=== PATIENT | male | born 1945 | race Caucasian/White ===

== ENCOUNTER 2019-12-04 16:49 | Emergency (ER) | payer MEDICARE, MEDICAID ==
[2019-12-04] MEDS ORDERED: Nitroglycerin 0.4 MG Tab.SL SL ONE (17:03)
[2019-12-04] MEDS ORDERED: HYDROmorphone 0.5 MG/0.5 ML Syringe IVPUSH ONE (17:03)
[2019-12-04] MEDS ORDERED: Sodium Chloride 0.9% 10 ML Syringe FLUSH PRN (17:04)
[2019-12-04] MEDS ORDERED: LORazepam 2 MG/ML SDV IVPUSH ONE ×2 (17:05→17:47)
--- NOTE | 2019-12-04 17:09 | EDM.PDOC ---
ED HPI GENERAL MEDICAL PROBLEM - General Chief Complaint: Chest Pain Stated Complaint: CHEST PAINS Time Seen by Provider: 12/04/19 16:57 Source of Information: Reports: Patient, RN Notes Reviewed - History of Present Illness INITIAL COMMENTS - FREE TEXT/NARRATIVE: 74 yr old male with onset of anterior chest pain about 30 minutes ago. Anterior chest heaviness and tightness radiating to L shoulder and L arm as well as base of neck. He arrives with continued severe pain, diaphoretic. No nausea or vomiting. He does not smoke. No known hx of CAD, diabetes or Htn but does not sound like he has seen a provider for a long time. Family hx of Cardiac problems. Chest Pain Score (Numeric/FACES): 8 Posterior Neck Pain Score (Numeric/FACES): 8 - Related Data Allergies Allergy/AdvReac Type Severity Reaction Status Date / Time No Known Allergies Allergy Verified 03/12/14 12:35 Home Meds: Home Meds . [No Known Home Meds] 03/12/14 [History] ED ROS GENERAL - Review of Systems Review Of Systems: See Below Constitutional: Reports: Diaphoresis. Denies: Fever, Chills HEENT: Denies: Sinus Problem, Throat Pain Respiratory: Reports: Shortness of Breath. Denies: Pleuritic Chest Pain, Cough Cardiovascular: Reports: Chest Pain GI/Abdominal: Denies: Abdominal Pain, Nausea, Vomiting Musculoskeletal: Reports: Neck Pain, Shoulder Pain, Arm Pain Skin: Reports: Diaphoresis Neurological: Reports: Dizziness ED EXAM, GENERAL - Physical Exam Exam: See Below General Appearance: Alert, Severe Distress Eye Exam: Bilateral Eye: PERRL Head: Atraumatic. No: Facial Swelling Neck: Supple, Other (No JVD) Respiratory/Chest: No Respiratory Distress, Lungs Clear. No: Rhonchi, Wheezing Cardiovascular: Regular Rate, Rhythm GI/Abdominal: Soft, Non-Tender. No: Guarding Back Exam: No: CVA Tenderness (L), CVA Tenderness (R) Extremities: No: Pedal Edema, Leg Pain, Increased Warmth, Redness Neurological: Alert, Oriented, No Motor/Sensory Deficits Skin Exam: No Rash, Pallor EKG INTERPRETATION EKG Date: 12/04/19 Rhythm: Other (NSR with frequent PVC's) [place]: Normal P-Wave: Present QRS: LBBB Course - Vital Signs Last Recorded V/S: Last Vital Signs Temp 96.9 F 12/04/19 18:30 Pulse 84 12/04/19 18:30 Resp 22 H 12/04/19 18:30 BP 158/98 H 12/04/19 18:30 Pulse Ox 92 L 12/04/19 18:30 - Orders/Labs/Meds Orders: Active Orders 24 hr Category Date Time Status EKG 12 Lead [EKG Documentation Completion] [RC] STAT Care 12/04/19 17:04 Active Oxygen Therapy, ED [RC] ASDIRECTED Care 12/04/19 19:24 Active Peripheral IV Care [RC] . DIRECTED Care 12/04/19 17:05 Active CORONAVIRUS COVID-19 RAPID [MOLEC] Stat Lab 12/04/19 18:13 Ordered Aspirin Med 12/04/19 17:15 Active 324 mg PO DAILY Heparin Sodium/D5W [Heparin 25,000 Units in D5W 500 ML] Med 12/04/19 17:30 Active 25,000 units in 500 ml IV TITRATE Nitroglycerin/D5W [Nitroglycerin 25 MG/D5W 250 ML] Med 12/04/19 17:30 Active 25 mg in 250 ml IV TITRATE Sodium Chloride 0.9% [Normal Saline] 1,000 ml Med 12/04/19 17:15 Active IV ASDIRECTED Sodium Chloride 0.9% [Saline Flush] Med 12/04/19 17:04 Active 10 ml FLUSH ASDIRECTED PRN Peripheral IV Insertion Adult [OM.PC] Stat Oth 12/04/19 17:05 Ordered Medication Orders Aspirin (Aspirin) 324 mg PO DAILY LOUIE Last Admin: 12/04/19 17:13 Dose: 324 mg Documented by: BENIGNO Sodium Chloride (Normal Saline) 1,000 mls @ 150 mls/hr IV ASDIRECTED LOUIE Last Admin: 12/04/19 17:22 Dose: 150 mls/hr Documented by: BENIGNO Nitroglycerin/Dextrose (Nitroglycerin 25 Mg/D5w 250 Ml) 25 mg in 250 mls @ 3 mls/hr IV TITRATE LOUIE; Protocol Last Titration: 12/04/19 18:05 Dose: 25 mcg/min, 15 mls/hr Documented by: Titration: 12/04/19 17:59 Dose: 20 mcg/min, 12 mls/hr Documented by: Titration: 12/04/19 17:50 Dose: 15 mcg/min, 9 mls/hr Documented by: Admin: 12/04/19 17:44 Dose: 10 mcg/min, 6 mls/hr Documented by: BENIGNO Heparin Sodium/Dextrose (Heparin 25,000 Units In D5w 500 Ml) 25,000 units in 500 mls @ 22.861 mls/hr IV TITRATE LOUIE; Protocol Last Admin: 12/04/19 17:45 Dose: 12 units/kg/hr, 22.861 mls/hr Documented by: BENIGNO Cosigned by: CAYETANO Sodium Chloride (Saline Flush) 10 ml FLUSH ASDIRECTED PRN PRN Reason: Keep Vein Open Last Admin: 12/04/19 17:18 Dose: 10 ml Documented by: BENIGNO Labs: Laboratory Tests 12/04/19 12/04/19 12/04/19 Range/Units 17:00 17:00 17:00 WBC 7.97 (4.23-9.07) K/mm3 RBC 5.29 (4.63-6.08) M/mm3 Hgb 16.4 (13.7-17.5) gm/dl Hct 47.8 (40.1-51.0) % MCV 90.4 D (79.0-92.2) fl MCH 31.0 (25.7-32.2) pg MCHC 34.3 (32.2-35.5) g/dl RDW Std Deviation 43.2 (35.1-43.9) fL Plt Count 261 (163-337) K/mm3 MPV 9.9 (9.4-12.3) fl Neut % (Auto) 61.2 (34.0-67.9) % Lymph % (Auto) 26.3 (21.8-53.1) % [place] % (Auto) 8.4 (5.3-12.2) % Eos % (Auto) 3.6 (0.8-7.0) Baso % (Auto) 0.4 (0.1-1.2) % Neut # (Auto) 4.87 (1.78-5.38) K/mm3 Lymph # (Auto) 2.10 (1.32-3.57) K/mm3 [place] # (Auto) 0.67 (0.30-0.82) K/mm3 Eos # (Auto) 0.29 (0.04-0.54) K/mm3 Baso # (Auto) 0.03 (0.01-0.08) K/mm3 PT 10.3 (9.7-12.0) SECONDS INR 0.96 APTT 25 (22-31) SECONDS Sodium 140 (136-145) mEq/L Potassium 4.0 (3.5-5.1) mEq/L Chloride 106 (98-107) mEq/L Carbon Dioxide 22 (21-32) mEq/L Anion Gap 16.0 H (5-15) BUN 17 (7-18) mg/dL Creatinine 1.2 (0.7-1.3) mg/dL Est Cr Clr Drug Dosing 56.61 mL/min Estimated GFR (MDRD) 59 (>60) mL/min BUN/Creatinine Ratio 14.2 (14-18) Glucose 121 H (83-115) mg/dL Calcium 8.8 (8.5-10.1) mg/dL Total Bilirubin 0.3 (0.2-1.0) mg/dL AST 15 (15-37) U/L ALT 36 (16-63) U/L Alkaline Phosphatase 90 (46-116) U/L Troponin I 0.034 (0.00-0.056) ng/mL Total Protein 7.8 (6.4-8.2) g/dl Albumin 4.0 (3.4-5.0) g/dl Globulin 3.8 gm/dL Albumin/Globulin Ratio 1.1 (1-2) Meds: Medications Generic Name Dose Route Start Last Admin Trade Name Freq PRN Reason Stop Dose Admin Aspirin 324 mg 12/04/19 17:15 12/04/19 17:13 Aspirin PO 324 mg DAILY LOUIE Administration Sodium Chloride 1,000 mls @ 150 mls/hr 12/04/19 17:15 12/04/19 17:22 Normal Saline IV 150 mls/hr ASDIRECTED LOUIE Administration Nitroglycerin/Dextrose 25 mg in 250 mls @ 3 mls/hr 12/04/19 17:30 12/04/19 18:05 Nitroglycerin 25 Mg/D5w 250 Ml IV 25 mcg/min TITRATE LOUIE 15 mls/hr Titration Protocol 5 MCG/MIN Heparin Sodium/Dextrose 25,000 units in 500 mls @ 22.861 mls/hr 12/04/19 17:30 12/04/19 17:45 Heparin 25,000 Units In D5w 500 Ml IV 12 units/kg/hr TITRATE LOUIE 22.861 mls/hr Administration Protocol 12 UNITS/KG/HR Sodium Chloride 10 ml 12/04/19 17:04 12/04/19 17:18 Saline Flush FLUSH 10 ml ASDIRECTED PRN Administration Keep Vein Open Discontinued Medications Generic Name Dose Route Start Last Admin Trade Name Frejosh PRN Reason Stop Dose Admin Heparin Sodium (Porcine) 4,000 units 12/04/19 17:29 12/04/19 17:42 Heparin Sodium IVPUSH 12/04/19 17:30 4,000 units .BOLUS ONE Administration Hydromorphone HCl 0.5 mg 12/04/19 17:03 12/04/19 17:16 Dilaudid IVPUSH 12/04/19 17:04 0.5 mg ONETIME ONE Administration Lorazepam 0.5 mg 12/04/19 17:05 12/04/19 17:09 Ativan IVPUSH 12/04/19 17:06 0.5 mg ONETIME ONE Administration Lorazepam 0.5 mg 12/04/19 17:47 12/04/19 17:47 Ativan IVPUSH 12/04/19 17:48 0.5 mg ONETIME ONE Administration Nitroglycerin 0.4 mg 12/04/19 17:03 12/04/19 17:08 Nitrostat SL 12/04/19 17:04 0.4 mg ONETIME ONE Administration Tenecteplase Confirm 12/04/19 17:18 12/04/19 18:22 Tnkase Administered 12/04/19 17:19 Not Given Dose 50 mg .ROUTE .[facility] - Re-Assessments/Exams Free Text/Narrative Re-Assessment/Exam: 12/04/19 18:07 17:26. Have discussed sx, EKG with Dr Mendoza, [employer] documentation coordinator for [facility]. Have sent her the EKG for her review. With his high BP on arrival, LBB on EKG we do not know that this is a STEMI, she strongly believes not safe to give thrombolytics. She does want us to start heparin- bolus, drip has been ordered. He was given aspirin 324 chew. He has had 1 ntg SL, nitro drip also ordered. We have called [facility] for helicopter to come out for transfer. they are doing a weather check at this time. 12/04/19 17:45. Still groaning, threshing around, will give 0.5 mg further ativan. BP improved to about 160/100. Sinus rythm in the 80's, still having somewhat frequent PVC's. 18:[address] Mendoza, [employer], [facility] who does accept pt for transfer. Air crew left with him just a short time ago, pain down to about a 3-4. He will go to the ED, [facility]. Tropo .034. CXR nl, other labs relatively nl. 12/04/19 19:29. looking for results of covid screen. Order entered well before transfer, unfortunately it did not get done, he did not get swabbed while here in the ED. 12/04/19 19:36 Departure - Departure Time of Disposition: 15:45 Disposition: DC/Tfer to [facility] 02 Reason for Transfer *Q: Other Condition: Serious Clinical Impression: Acute coronary syndrome Referrals: PCP,None [Ordering Only Provider] - Forms: ED Department Discharge Sepsis Event Note (ED) - Evaluation Sepsis Screening Result: No Definite Risk - Focused Exam Vital Signs: Vital Signs Temp Pulse Resp BP BP Pulse Ox 12/04/19 18:30 96.9 F 84 22 H 158/98 H 92 L 12/04/19 17:08 168/103 H 12/04/19 17:00 95.5 F L 87 18 192/128 H 96 - My Orders Last 24 Hours: My Active Orders 12/04/19 17:04 EKG 12 Lead [EKG Documentation Completion] [RC] STAT Sodium Chloride 0.9% [Saline Flush] 10 ml FLUSH ASDIRECTED PRN 12/04/19 17:05 Peripheral IV Care [RC] . DIRECTED Peripheral IV Insertion Adult [OM.PC] Stat 12/04/19 17:15 Aspirin 324 mg PO DAILY Sodium Chloride 0.9% [Normal Saline] 1,000 ml IV ASDIRECTED 12/04/19 17:30 Heparin Sodium/D5W [Heparin 25,000 Units in D5W 500 ML] 25,000 units in 500 ml IV TITRATE Nitroglycerin/D5W [Nitroglycerin 25 MG/D5W 250 ML] 25 mg in 250 ml IV TITRATE 12/04/19 18:13 CORONAVIRUS COVID-19 RAPID [MOLEC] Stat 12/04/19 19:24 Oxygen Therapy, ED [RC] ASDIRECTED - Assessment/Plan Last 24 Hours: My Active Orders 12/04/19 17:04 EKG 12 Lead [EKG Documentation Completion] [RC] STAT Sodium Chloride 0.9% [Saline Flush] 10 ml FLUSH ASDIRECTED PRN 12/04/19 17:05 Peripheral IV Care [RC] . DIRECTED Peripheral IV Insertion Adult [OM.PC] Stat 12/04/19 17:15 Aspirin 324 mg PO DAILY Sodium Chloride 0.9% [Normal Saline] 1,000 ml IV ASDIRECTED 12/04/19 17:30 Heparin Sodium/D5W [Heparin 25,000 Units in D5W 500 ML] 25,000 units in 500 ml IV TITRATE Nitroglycerin/D5W [Nitroglycerin 25 MG/D5W 250 ML] 25 mg in 250 ml IV TITRATE 12/04/19 18:13 CORONAVIRUS COVID-19 RAPID [MOLEC] Stat 12/04/19 19:24 Oxygen Therapy, ED [RC] ASDIRECTED
[2019-12-04] MEDS ORDERED: Aspirin 81 MG Tab.Chew PO SCH (17:15)
[2019-12-04] MEDS ORDERED: Sodium Chloride 0.9% 1,000 ML IV SCH (17:15)
[2019-12-04] MEDS ORDERED: Tenecteplase 50 MG Kit ONE (17:18)
[2019-12-04] MEDS ORDERED: Heparin Sodium 5,000 Units/ML Vial IVPUSH ONE (17:29)
[2019-12-04] MEDS ORDERED: Heparin Sodium/D5W 25,000 UNITS/500 ML BAG IV SCH (17:30)
[2019-12-04] MEDS ORDERED: Nitroglycerin/D5W 25 MG/250 ML BOTTLE IV SCH (17:30)
--- NOTE | 2019-12-04 17:41 | CR ---
Chest: Portable view of the chest was obtained. Comparison: Prior chest x-ray of 03/12/14. Heart size and mediastinum are within normal limits for portable technique. Lungs are clear with no acute parenchymal change. Bony structures are grossly intact. Impression: 1. Nothing acute is seen on portable chest x-ray. Diagnostic code #1 This report was dictated in MDT
== END 2019-12-04 18:30 ==
LOC: JD.ED 16:49
DX: I24.9 Acute ischemic heart disease, unspecified (principal)
CPT/HCPCS: 36415; 71045; 80053; 84484; 85025; 85610; 85730; 93005; 96365; 96368; 96375; 96376; 99285; A9270; J1170; J1644; J2060; J3490; J7030; 93010; 99284

== ENCOUNTER 2020-03-25 14:41 | Emergency (ER) | payer MEDICARE, MEDICAID ==
[2020-03-25] MEDS ORDERED: EPINEPHrine 1:10,000 1 MG/10 ML Syringe IM PRN (15:28)
[2020-03-25] MEDS ORDERED: diphenhydrAMINE 50 MG/ML SDV IVPUSH PRN (15:28)
[2020-03-25] MEDS ORDERED: methylPREDNISolone Sodium Succinate 125 MG/2 ML SDV IVPUSH PRN (15:28)
[2020-03-25] MEDS ORDERED: Famotidine 20 MG/2 ML SDV IVPUSH PRN (15:28)
[2020-03-25] MEDS ORDERED: Sodium Chloride 0.9% 10 ML Syringe FLUSH PRN (15:28)
[2020-03-25] MEDS ORDERED: Sodium Chloride 0.9% 10 ML Syringe FLUSH SCH (15:30)
--- NOTE | 2020-03-25 15:37 | EDM.PDOC ---
ED HPI GENERAL MEDICAL PROBLEM - General Chief Complaint: Respiratory Problem Stated Complaint: COVID +/COUGH Time Seen by Provider: 03/25/20 14:57 Source of Information: Reports: Patient, RN Notes Reviewed History Limitations: Reports: No Limitations - History of Present Illness INITIAL COMMENTS - FREE TEXT/NARRATIVE: Patient is a 74-year-old male who presents to the ED for evaluation of his COVID-19. Patient notes he began to become symptomatic on Saturday, March 19, 2020, and he tested positive Saturday for COVID-19.he has had a heart attack 3 months ago, and he is on certain medications for his cardiac disease that makes him dizzy, have a cough and feel fatigued. He notes that this fall has worsened since he has been symptomatic with COVID-19. He is not getting any junk up with his cough. O2 sats are 97% on room air. The patient notes that his lungs hurt when he takes a deep breath, he notes that he has had this feeling 1 other time, when he had a pneumonia. His primary care provider is Boni Fernandez. He has not had any fevers or chills, he states he did have a few episodes of nausea and vomiting, but has been able to keep most of his food and fluids down. Treatments ALTERATIONS TAILOR: Reports: Other (see below) Other Treatments ALTERATIONS TAILOR: tylenol Neck Pain Score (Numeric/FACES): 7 Shoulder Pain Score (Numeric/FACES): 5 - Related Data Allergies Allergy/AdvReac Type Severity Reaction Status Date / Time No Known Allergies Allergy Verified 03/12/14 12:35 Home Meds: Home Meds Codeine/Promethazine [Phenergan with Codeine] 5 ml PO Q4HR PRN #120 ml 03/25/20 [Rx] Past Medical History Cardiovascular History: Reports: NH (11/2019), Stents Gastrointestinal History: Reports: Other (See Below) Other Gastrointestinal History: chron's with colostomy Neurological History: Reports: CVA Other Neuro History: 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.- PT SAYS HE STILL IS WEAK IN THE RIGHT SIDE AND ALSO HAD MUMBLED SPEECH - Infectious Disease History Infectious Disease History: Reports: Measles Social & Family History - Tobacco Use Tobacco Use Status *Q: Former Tobacco User Used Tobacco, but Quit: Yes Month/Year Tobacco Last Used: 4 yr - Caffeine Use Caffeine Use: Reports: Coffee Other Caffeine Use: decaf - Recreational Drug Use Recreational Drug Use: No ED ROS GENERAL - Review of Systems Review Of Systems: Comprehensive ROS is negative, except as noted in HPI. ED EXAM, GENERAL - Physical Exam Exam: See Below Exam Limited By: No Limitations General Appearance: Alert, WD/WN, No Apparent Distress Respiratory/Chest: No Respiratory Distress, Lungs Clear, Normal Breath Sounds, No Accessory Muscle Use, Chest Non-Tender Cardiovascular: Normal Peripheral Pulses, Regular Rate, Rhythm, No Edema, No Murmur GI/Abdominal: Normal Bowel Sounds, Soft, Non-Tender, No Distention, No Mass Extremities: Normal Inspection, Normal Capillary Refill Neurological: Alert, Oriented, Normal Cognition, No Motor/Sensory Deficits Psychiatric: Normal Affect, Normal Mood Skin Exam: Warm, Dry, Intact, Normal Color, No Rash #1 Interpretation EKG Date: 03/25/20 Time: 15:02 Rhythm: NSR Rate (Beats/Min): 66 [place]: Normal P-Wave: Present QRS: LBBB ST-T: Normal QT: Normal EKG Interpretation Comments: No obvious ischemia or acute ST changes noted, reviewed by myself and Dr. Khan. Course - Vital Signs Last Recorded V/S: Last Vital Signs Temp 97.2 F 03/25/20 15:06 Pulse 70 03/25/20 15:06 Resp 20 03/25/20 15:06 BP 107/79 03/25/20 15:06 Pulse Ox 98 03/25/20 15:06 - Orders/Labs/Meds Orders: Active Orders 24 hr Category Date Time Status EKG Documentation Completion [RC] STAT Care 03/25/20 15:27 Ordered Peripheral IV Care [RC] . DIRECTED Care 03/25/20 15:28 Ordered Vital Signs [RC] Q15M Care 03/25/20 15:28 Ordered EPINEPHrine [EPINEPHrine 1:10,000] Med 03/25/20 15:28 Active 0.3 mg IM ONETIME PRN Famotidine [Pepcid] Med 03/25/20 15:28 Active 20 mg IVPUSH ONETIME PRN Sodium Chloride 0.9% [Saline Flush] Med 03/25/20 15:28 Active 10 ml FLUSH ASDIRECTED PRN Sodium Chloride 0.9% [Saline Flush] Med 03/25/20 15:30 Active 30 ml FLUSH ASDIRECTED diphenhydrAMINE [Benadryl] Med 03/25/20 15:28 Active 50 mg IVPUSH ONETIME PRN methylPREDNISolone Sod Succ [Solu-MEDROL] Med 03/25/20 15:28 Active 125 mg IVPUSH ONETIME PRN Peripheral IV Insertion Adult [OM.PC] Routine Oth 03/25/20 15:28 Ordered Medication Orders Diphenhydramine HCl (Benadryl) 50 mg IVPUSH ONETIME PRN PRN Reason: hypersensitivity reaction Epinephrine HCl (Epinephrine 1:10,000) 0.3 mg IM ONETIME PRN PRN Reason: hypersensitivity reaction Famotidine (Pepcid) 20 mg IVPUSH ONETIME PRN PRN Reason: hypersensitivity reaction Methylprednisolone Sodium Succinate (Solu-Medrol) 125 mg IVPUSH ONETIME PRN PRN Reason: hypersensitivity reaction Sodium Chloride (Saline Flush) 10 ml FLUSH ASDIRECTED PRN PRN Reason: Keep Vein Open Last Admin: 03/25/20 16:04 Dose: 10 ml Documented by: NAIN Sodium Chloride (Saline Flush) 30 ml FLUSH ASDIRECTED [facility] Labs: Laboratory Tests 03/25/20 03/25/20 03/25/20 Range/Units 15:05 15:05 15:05 WBC 4.23 (4.23-9.07) K/mm3 RBC 4.13 L (4.63-6.08) M/mm3 Hgb 12.9 L D (13.7-17.5) gm/dl Hct 38.9 L (40.1-51.0) % MCV 94.2 H D (79.0-92.2) fl MCH 31.2 (25.7-32.2) pg MCHC 33.2 (32.2-35.5) g/dl RDW Std Deviation 47.4 H (35.1-43.9) fL Plt Count 179 D (163-337) K/mm3 MPV 10.5 (9.4-12.3) fl Neutrophils % (Manual) 71 H (40-60) % Band Neutrophils % 1 (0-10) % Lymphocytes % (Manual) 20 (20-40) % Atypical Lymphs % 0 % Monocytes % (Manual) 5 (2-10) % Eosinophils % (Manual) 3 (0.8-7.0) % Basophils % (Manual) 0 L (0.2-1.2) Platelet Estimate Adequate RBC Morph Comment Normal PT 10.1 (9.7-12.0) SECONDS INR 0.94 APTT 27.3 (21.7-31.4) SECONDS D-Dimer, Quantitative 0.63 H (0.19-0.50) mg/L Sodium (136-145) mEq/L Potassium (3.5-5.1) mEq/L Chloride (98-107) mEq/L Carbon Dioxide (21-32) mEq/L Anion Gap (5-15) BUN (7-18) mg/dL Creatinine (0.7-1.3) mg/dL Est Cr Clr Drug Dosing mL/min Estimated GFR (MDRD) (>60) mL/min BUN/Creatinine Ratio (14-18) Glucose (83-115) mg/dL Lactic Acid (0.4-2.0) mmol/L Calcium (8.5-10.1) mg/dL Magnesium (1.8-2.4) mg/dl Ferritin (26-388) ng/ml Total Bilirubin (0.2-1.0) mg/dL AST (15-37) U/L ALT (16-63) U/L Alkaline Phosphatase (46-116) U/L Troponin I (0.00-0.056) ng/mL C-Reactive Protein 1.6 H* (<1.0) mg/dL NT-Pro-B Natriuret Pep (0-125) pg/mL Total Protein (6.4-8.2) g/dl Albumin (3.4-5.0) g/dl Globulin gm/dL Albumin/Globulin Ratio (1-2) 03/25/20 03/25/20 03/25/20 Range/Units 15:05 15:05 15:05 WBC (4.23-9.07) K/mm3 RBC (4.63-6.08) M/mm3 Hgb (13.7-17.5) gm/dl Hct (40.1-51.0) % MCV (79.0-92.2) fl MCH (25.7-32.2) pg MCHC (32.2-35.5) g/dl RDW Std Deviation (35.1-43.9) fL Plt Count (163-337) K/mm3 MPV (9.4-12.3) fl Neutrophils % (Manual) (40-60) % Band Neutrophils % (0-10) % Lymphocytes % (Manual) (20-40) % Atypical Lymphs % % Monocytes % (Manual) (2-10) % Eosinophils % (Manual) (0.8-7.0) % Basophils % (Manual) (0.2-1.2) Platelet Estimate RBC Morph Comment PT (9.7-12.0) SECONDS INR APTT (21.7-31.4) SECONDS D-Dimer, Quantitative (0.19-0.50) mg/L Sodium 139 (136-145) mEq/L Potassium 3.9 (3.5-5.1) mEq/L Chloride 106 (98-107) mEq/L Carbon Dioxide 19 L (21-32) mEq/L Anion Gap 17.9 H (5-15) BUN 22 H (7-18) mg/dL Creatinine 1.1 (0.7-1.3) mg/dL Est Cr Clr Drug Dosing 61.76 mL/min Estimated GFR (MDRD) > 60 (>60) mL/min BUN/Creatinine Ratio 20.0 H (14-18) Glucose 93 (83-115) mg/dL Lactic Acid (0.4-2.0) mmol/L Calcium 8.5 (8.5-10.1) mg/dL Magnesium 1.9 (1.8-2.4) mg/dl Ferritin 172 (26-388) ng/ml Total Bilirubin 0.3 (0.2-1.0) mg/dL AST 37 (15-37) U/L ALT 47 (16-63) U/L Alkaline Phosphatase 89 (46-116) U/L Troponin I < 0.017 (0.00-0.056) ng/mL C-Reactive Protein (<1.0) mg/dL NT-Pro-B Natriuret Pep 165 H (0-125) pg/mL Total Protein 7.1 (6.4-8.2) g/dl Albumin 3.4 (3.4-5.0) g/dl Globulin 3.7 gm/dL Albumin/Globulin Ratio 0.9 L (1-2) 03/25/20 Range/Units 15:05 WBC (4.23-9.07) K/mm3 RBC (4.63-6.08) M/mm3 Hgb (13.7-17.5) gm/dl Hct (40.1-51.0) % MCV (79.0-92.2) fl MCH (25.7-32.2) pg MCHC (32.2-35.5) g/dl RDW Std Deviation (35.1-43.9) fL Plt Count (163-337) K/mm3 MPV (9.4-12.3) fl Neutrophils % (Manual) (40-60) % Band Neutrophils % (0-10) % Lymphocytes % (Manual) (20-40) % Atypical Lymphs % % Monocytes % (Manual) (2-10) % Eosinophils % (Manual) (0.8-7.0) % Basophils % (Manual) (0.2-1.2) Platelet Estimate RBC Morph Comment PT (9.7-12.0) SECONDS INR APTT (21.7-31.4) SECONDS D-Dimer, Quantitative (0.19-0.50) mg/L Sodium (136-145) mEq/L Potassium (3.5-5.1) mEq/L Chloride (98-107) mEq/L Carbon Dioxide (21-32) mEq/L Anion Gap (5-15) BUN (7-18) mg/dL Creatinine (0.7-1.3) mg/dL Est Cr Clr Drug Dosing mL/min Estimated GFR (MDRD) (>60) mL/min BUN/Creatinine Ratio (14-18) Glucose (83-115) mg/dL Lactic Acid 1.1 (0.4-2.0) mmol/L Calcium (8.5-10.1) mg/dL Magnesium (1.8-2.4) mg/dl Ferritin (26-388) ng/ml Total Bilirubin (0.2-1.0) mg/dL AST (15-37) U/L ALT (16-63) U/L Alkaline Phosphatase (46-116) U/L Troponin I (0.00-0.056) ng/mL C-Reactive Protein (<1.0) mg/dL NT-Pro-B Natriuret Pep (0-125) pg/mL Total Protein (6.4-8.2) g/dl Albumin (3.4-5.0) g/dl Globulin gm/dL Albumin/Globulin Ratio (1-2) Meds: Medications Generic Name Dose Route Start Last Admin Trade Name Freq PRN Reason Stop Dose Admin Diphenhydramine HCl 50 mg 03/25/20 15:28 Benadryl IVPUSH ONETIME PRN hypersensitivity reaction Epinephrine HCl 0.3 mg 03/25/20 15:28 Epinephrine 1:10,000 IM ONETIME PRN hypersensitivity reaction Famotidine 20 mg 03/25/20 15:28 Pepcid IVPUSH ONETIME PRN hypersensitivity reaction Methylprednisolone Sodium Succinate 125 mg 03/25/20 15:28 Solu-Medrol IVPUSH ONETIME PRN hypersensitivity reaction Sodium Chloride 10 ml 03/25/20 15:28 03/25/20 16:04 Saline Flush FLUSH 10 ml ASDIRECTED PRN Administration Keep Vein Open Sodium Chloride 30 ml 03/25/20 15:30 Saline Flush FLUSH ASDIRECTED LOUIE Discontinued Medications Generic Name Dose Route Start Last Admin Trade Name Freq PRN Reason Stop Dose Admin Bamlanivimab 700 mg/ Sodium 270 mls @ 270 mls/hr 03/25/20 16:00 03/25/20 16:03 Chloride IV 03/25/20 16:59 270 mls/hr ONETIME ONE Administration Protocol - Re-Assessments/Exams Free Text/Narrative Re-Assessment/Exam: 03/25/20 15:38 Patient presents to the ED for evaluation of his ongoing COVID-19 symptoms. Labs have been obtained at time of triage, EKG has been done and demonstrates sinus rhythm with a left bundle branch block, but no acute abnormalities were appreciated. He is a candidate for bamlanivimab treatment as he is over 65, and does have underlying cardiovascular disease and is within the 10-day symptom onset timeframe. This has been ordered as well. I spoke with the patient to provide information about bamlanivimab treatment. I offered ( him/her) the "Patient and caregiver EUA bamlanivimab fact sheet" to read and review. I stated that the drug has been approved by an emergency use authorization (EUA) process and has not been fully FDA reviewed or approved. The patient meets the EUA requirements. I discussed there are other potential treatment options that are currently not FDA approved to treat COVID-19. I did offer an opportunity to ask questions and all questions were answered. The patient voiced understanding and agreed to proceed with the treatment. 03/25/20 16:23 Chest x-ray has been performed and does not appear to have any acute findings. 03/25/20 17:32 Labs are all consistent with a COVID-19 infection. Patient tolerated the bamlanivimab treatment, we will need to keep him here in the ER until 18:10 before we can discharge him. I will give him a prescription for cough medication and discharge him home with other general conservative re commendations. Departure - Departure Time of Disposition: 17:33 Disposition: Home, Self-Care 01 Condition: Good Clinical Impression: COVID-19 - Discharge Information *PRESCRIPTION DRUG MONITORING PROGRAM REVIEWED*: Yes *COPY OF PRESCRIPTION DRUG MONITORING REPORT IN PATIENT [place]: No Prescriptions: Codeine/Promethazine [Phenergan with Codeine] 5 ml PO Q4HR PRN #120 ml PRN Reason: Cough Instructions: Prevent the Spread of COVID-19 if You Are Sick - CDC, COVID-19 Frequently Asked Questions Referrals: Boni Fernandez Jr, MD [Primary Care Provider] - Forms: ED Department Discharge Additional Instructions: You were seen in the ER today for ongoing and/or worsening respiratory symptoms. Your chest x-ray showed no signs of pneumonia at this time. Your oxygen levels were great at 97-98% on room air. Please try to increase your oral fluid intake, and eat multiple small meals throughout the day, to keep yourself healthy. You need to keep yourself nourished in order to fight off this disease. You can try a liquid diet like gatorade/powerade as well to get your electrolytes. You may take 500 mg Tylenol every hours 6 hours for pain/fever relief. Do not exceed 4000 mg Tylenol in a 24-hour time span. However, running a fever is your body's natural response to illness, and it allows the body to develop antibodies to disease, we are recommending trying to limit the use of Tylenol as much as possible to allow your body's natural immune response. Recommend you obtain a pulse oximeter and monitor your oxygen levels at home, you should place the monitor on your finger, and sit in a calm, quiet position for a few minutes and then record the number that is on the screen. If this consistently below 90% on room air without movement, this would be cause for concern to come back to the hospital for further management of your COVID-19 disease. You were given a prescription for cough medication, please use 5-10 mils by mouth every 4 hours as needed for further cough. Do not drive while using this medication. Please follow all direction set forth from the [facility] regarding your quarantine status for COVID-19. Sepsis Event Note (ED) - Evaluation Sepsis Screening Result: No Definite Risk - Focused Exam Vital Signs: Vital Signs Temp Pulse Resp BP Pulse Ox 03/25/20 15:06 97.2 F 70 20 107/79 98 - My Orders Last 24 Hours: My Active Orders 03/25/20 15:27 EKG Documentation Completion [RC] STAT 03/25/20 15:28 Peripheral IV Care [RC] . DIRECTED Vital Signs [RC] Q15M EPINEPHrine [EPINEPHrine 1:10,000] 0.3 mg IM ONETIME PRN Famotidine [Pepcid] 20 mg IVPUSH ONETIME PRN Sodium Chloride 0.9% [Saline Flush] 10 ml FLUSH ASDIRECTED PRN diphenhydrAMINE [Benadryl] 50 mg IVPUSH ONETIME PRN methylPREDNISolone Sod Succ [Solu-MEDROL] 125 mg IVPUSH ONETIME PRN Peripheral IV Insertion Adult [OM.PC] Routine 03/25/20 15:30 Sodium Chloride 0.9% [Saline Flush] 30 ml FLUSH ASDIRECTED - Assessment/Plan Last 24 Hours: My Active Orders 03/25/20 15:27 EKG Documentation Completion [RC] STAT 03/25/20 15:28 Peripheral IV Care [RC] . DIRECTED Vital Signs [RC] Q15M EPINEPHrine [EPINEPHrine 1:10,000] 0.3 mg IM ONETIME PRN Famotidine [Pepcid] 20 mg IVPUSH ONETIME PRN Sodium Chloride 0.9% [Saline Flush] 10 ml FLUSH ASDIRECTED PRN diphenhydrAMINE [Benadryl] 50 mg IVPUSH ONETIME PRN methylPREDNISolone Sod Succ [Solu-MEDROL] 125 mg IVPUSH ONETIME PRN Peripheral IV Insertion Adult [OM.PC] Routine 03/25/20 15:30 Sodium Chloride 0.9% [Saline Flush] 30 ml FLUSH ASDIRECTED
--- NOTE | 2020-03-25 16:20 | CR ---
Chest: Portable view of the chest was obtained. Comparison: Prior chest x-ray of 12/04/19. Findings: Heart and mediastinum. Tortuous thoracic aorta is seen. Lungs are clear. No mediastinal mass is appreciated. Lungs: Lungs are clear with no acute parenchymal change. No pleural thickening is seen. Osseous: No acute osseous finding is seen. Impression: 1. Nothing acute is seen on portable chest x-ray. Diagnostic code #1
== END 2020-03-25 19:00 | disposition home or self-care (01) ==
LOC: JD.ED 14:41
DX: U07.1 COVID-19 (principal); I25.2 Old myocardial infarction; Z86.73 Personal history of transient ischemic attack (TIA), and cerebral infarction without residual deficits; Z87.891 Personal history of nicotine dependence
CPT/HCPCS: 36415; 71045; 71045-26; 80053; 82728; 83605; 83735; 83880; 84484; 85007; 85027; 85379; 85610; 85730; 86140; 93005; 93010; 96365; 99283; 99284-25; J7050

== ENCOUNTER 2020-09-25 19:30 | Emergency (ER) | payer MEDICARE, MEDICAID ==
--- NOTE | 2020-09-25 20:06 | EDM.PDOC ---
ED HPI GENERAL MEDICAL PROBLEM - General Chief Complaint: Genitourinary Problem Stated Complaint: BLOOD IN URINE Time Seen by Provider: 09/25/20 19:40 Source of Information: Reports: Patient, Significant Other (Girlfriend) History Limitations: Reports: No Limitations - History of Present Illness INITIAL COMMENTS - FREE TEXT/NARRATIVE: Mr. Velarde is a pleasant 75-year-old gentleman who now presents the ED stating that he developed painless gross hematuria and mild generalized weakness last night. No associated dysuria, urinary frequency, or urgency. He denies feeling lightheaded when he stands up. No trauma to the abdomen or pelvis. No prior similar symptoms. The patient is on both Brilinta and aspirin 81 mg daily. Here in the ED, the patient's initial BP is found to be mildly elevated at 153/77, otherwise, he is hemodynamically stable, afebrile, saturating 98% on room air. He appears to be comfortable while lying semirecumbent on the gurney. Prior to last night, the patient denies having a recent fever, chills, sore throat, ear pain, nasal or sinus congestion, cough, dyspnea, chest pain, palpitations, nausea, vomiting, constipation, diarrhea, abdominal pain, urinary symptoms, recent weight gain or weight loss, recent bloody bowel movements or black bowel movements, recent joint aches, headaches, or rashes. The patient does not recall the name of his PCP. His Commissary Helper is Dr. Gail Mendoza. His Colorectal Surgeon is Dr. Devon Lemos. - Related Data Allergies Allergy/AdvReac Type Severity Reaction Status Date / Time No Known Allergies Allergy Verified 03/12/14 12:35 Home Meds: Home Meds Codeine/Promethazine [Phenergan with Codeine] 5 ml PO Q4HR PRN #120 ml 03/25/20 [Rx] Metoprolol Succinate [Toprol XL] 25 mg PO DAILY 09/25/20 [History] Rosuvastatin [Crestor] 10 mg PO DAILY 09/25/20 [History] Spironolactone [Aldactone] 25 mg PO DAILY 09/25/20 [History] Ticagrelor [Brilinta] 90 mg PO BID 09/25/20 [History] lisinopriL [Lisinopril] 10 mg PO DAILY 06/06/21 [History] Past Medical History Cardiovascular History: Reports: CAD, [place] (12/04/2019) Gastrointestinal History: Reports: Inflammatory Bowel Disease (Crohn disease, s/p total colectomy with ileostomy) Genitourinary History: Reports: BPH (suspected, untreated) Neurological History: Reports: 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) - Infectious Disease History Infectious Disease History: Reports: Measles, Novel Coronavirus (dx'd 03/23/2020) - Past Surgical History HEENT Surgical History: Reports: Oral Surgery (dental extractions) Cardiovascular Surgical History: Reports: Coronary Artery Stent (x 3, 12/04/2019) GI Surgical History: Reports: Colon (total colectomy with ileostomy) Social & Family History - Tobacco Use Tobacco Use Status *Q: Former Tobacco User Years of Tobacco use: 18 Packs/Tins Daily: 2 Month/Year Tobacco Last Used: Quit 1982 Tobacco Use Comment: Started smoking 1964 - Caffeine Use Caffeine Use: Reports: Coffee Other Caffeine Use: decaf - Alcohol Use Alcohol Use History: Yes Alcohol Use Frequency: Rarely - Recreational Drug Use Recreational Drug Use: No - Living Situation & Occupation Living situation: Reports: , with Significant Other (Girlfriend) Occupation: Retired ED ROS GENERAL - Review of Systems Review Of Systems: Comprehensive ROS is negative, except as noted in HPI. ED EXAM, RENAL/ - Physical Exam Exam: See Below Exam Limited By: No Limitations General Appearance: Alert, WD/WN, No Apparent Distress Eye Exam: Bilateral Eye: EOMI, Normal Inspection Ears: Normal External Exam, Hearing Grossly Normal Nose: Normal Inspection Throat/Mouth: Normal Inspection, Normal Lips, Normal Voice, No Airway Compromise Head: Atraumatic, Normocephalic Neck: Normal Inspection, Full Range of Motion Respiratory/Chest: No Respiratory Distress, Lungs Clear, Normal Breath Sounds, No Accessory Muscle Use Cardiovascular: Normal Peripheral Pulses, Regular Rate, Rhythm, No Edema, No Gallop, No JVD, No Murmur, No Rub GI/Abdominal: Normal Bowel Sounds, Soft, Non-Tender (including suprapubically), No Organomegaly, No Distention, No Abnormal Bruit, No Mass, Other (Ileostomy bag to the RLQ) Back Exam: Normal Inspection, Full Range of Motion. No: CVA Tenderness (L), CVA Tenderness (R) Extremities: Normal Inspection, Normal Range of Motion, No Pedal Edema, Normal Capillary Refill Neurological: Alert, Oriented, Normal Cognition, No Motor/Sensory Deficits Psychiatric: Normal Affect Skin Exam: Warm, Dry, Intact, Normal Color, No Rash Course - Vital Signs Last Recorded V/S: Last Vital Signs Temp 36.9 C 09/25/20 19:46 Pulse 61 09/25/20 19:46 Resp 20 09/25/20 19:46 BP 153/77 H 09/25/20 19:46 Pulse Ox 98 09/25/20 19:46 Orthostatic Blood Pressure [ 117/70 Standing] Orthostatic Blood Pressure [ 110/61 Sitting] Orthostatic Blood Pressure [ 148/78 Supine] - Orders/Labs/Meds Orders: Active Orders 24 hr Category Date Time Status Orthostatic Vital Signs [RC] STAT Care 09/25/20 20:03 Active Orthostatic Vital Signs [RC] STAT Care 09/25/20 20:31 Active Orthostatic Vital Signs [RC] STAT Care 09/25/20 22:44 Active Labs: Laboratory Tests 09/25/20 09/25/20 09/25/20 Range/Units 20:28 20:28 21:40 WBC 6.46 (4.23-9.07) K/mm3 RBC 4.47 L (4.63-6.08) M/mm3 Hgb 13.7 (13.7-17.5) gm/dl Hct 40.6 (40.1-51.0) % MCV 90.8 D (79.0-92.2) fl MCH 30.6 (25.7-32.2) pg MCHC 33.7 (32.2-35.5) g/dl RDW Std Deviation 43.4 (35.1-43.9) fL Plt Count 220 (163-337) K/mm3 MPV 9.8 (9.4-12.3) fl Neutrophils % (Manual) 67 H (40-60) % Band Neutrophils % 0 (0-10) % Lymphocytes % (Manual) 22 (20-40) % Atypical Lymphs % 0 % Monocytes % (Manual) 4 (2-10) % Eosinophils % (Manual) 6 (0.8-7.0) % Basophils % (Manual) 1 (0.2-1.2) Platelet Estimate Adequate RBC Morph Comment Normal Sodium 142 (136-145) mEq/L Potassium 4.2 (3.5-5.1) mEq/L Chloride 109 H (98-107) mEq/L Carbon Dioxide 19 L (21-32) mEq/L Anion Gap 18.2 H (5-15) BUN 26 H (7-18) mg/dL Creatinine 1.2 (0.7-1.3) mg/dL Est Cr Clr Drug Dosing 55.76 mL/min Estimated GFR (MDRD) 59 (>60) mL/min BUN/Creatinine Ratio 21.7 H (14-18) Glucose 105 H (70-99) mg/dL Calcium 8.2 L (8.5-10.1) mg/dL Magnesium 2.1 (1.8-2.4) mg/dL Total Bilirubin 0.3 (0.2-1.0) mg/dL AST 19 (15-37) U/L ALT 34 (16-63) U/L Alkaline Phosphatase 85 (46-116) U/L Total Protein 6.9 (6.4-8.2) g/dl Albumin 3.7 (3.4-5.0) g/dl Globulin 3.2 gm/dL Albumin/Globulin Ratio 1.2 (1-2) Urine Color Brown H (Yellow) Urine Appearance Turbid H (Clear) Urine pH 5.5 (5.0-8.0) Ur Specific [place] > or = 1.030 (1.005-1.030) Urine Protein 3+ H (Negative) Urine Glucose (UA) Negative (Negative) Urine Ketones Negative (Negative) Urine Occult Blood 3+ H (Negative) Urine Nitrite Negative (Negative) Urine Bilirubin 1+ H (Negative) Urine Urobilinogen 0.2 (0.2-1.0) Ur Leukocyte Esterase Negative (Negative) Urine RBC Too numerous to cnt H (0-5) /hpf Urine WBC 0-5 (0-5) /hpf Ur Squamous Epith Cells 0-5 (0-5) /hpf Urine Bacteria Few (FEW) /hpf Urine Mucus Few (FEW) /hpf Meds: Medications Discontinued Medications Generic Name Dose Route Start Last Admin Trade Name Freq PRN Reason Stop Dose Admin Sodium Chloride 1,000 mls @ 999 mls/hr 09/25/20 20:31 09/25/20 20:40 Normal Saline IV 09/25/20 21:31 999 mls/hr ONETIME ONE Administration Sodium Chloride 1,000 mls @ 999 mls/hr 09/25/20 22:44 09/25/20 22:57 Normal Saline IV 09/25/20 23:44 999 mls/hr ONETIME ONE Administration - Re-Assessments/Exams Free Text/Narrative Re-Assessment/Exam: 09/25/20 20:03 As above, the patient developed painless gross hematuria last night, while on Brilinta and aspirin. He also states that he has been feeling generally weak, although denies feeling lightheaded. His physical exam is unremarkable. I have ordered a work-up that includes orthostatics, some blood test, and a urinalysis by clean-catch. 09/25/20 20:32 The patient is orthostatic, therefore I have ordered a 1 L bolus of NS, to be f ollowed by repeat orthostatics. 09/25/20 22:45 The patient's CBC is unremarkable. His CMP is remarkable for a bicarbonate depressed at 19, with an anion gap elevated at 18.2. His BUN is slightly elevated 26, with a Cr within normal limits at 1.2, and slight hyperglycemia of 105, with the remainder of his CMP being unremarkable. His magnesium level is within normal limits at 2.1. His urinalysis is remarkable for 3+ occult blood with too numerous to count RBCs , leukocyte esterase negative with 0-5 WBCs, nitrate negative with few bacteria, and 0-5 squamous epithelial cells. Following 1 L of IV fluid, the patient is still orthostatic. I have ordered a second liter of IV fluid, to be followed by repeat orthostatics. 09/25/20 23:54 Following a second liter of IV fluid, the patient is still orthostatic. 09/26/20 00:28 Test results of the patient's continued orthostasis discussed with the patient and his girlfriend. I recommended that we place him under observation, however, he refused. He agreed to stay adequately hydrated with Gatorade or Powerade. I will refer him to Dr. Magallanes for further evaluation of his gross hematuria, although, of note, he states that it has significantly improved. Departure - Departure Time of Disposition: 00:29 Disposition: Home, Self-Care 01 Condition: Good Clinical Impression: Orthostasis, Gross hematuria - Discharge Information *PRESCRIPTION DRUG MONITORING PROGRAM REVIEWED*: Not Applicable *COPY OF PRESCRIPTION DRUG MONITORING REPORT IN PATIENT [place]: Not Applicable Referrals: Devon Lemos MD [Ordering Only Provider] - Gail Mendoza MD [Ordering Only Provider] - PCP,Unknown [Ordering Only Provider] - Stew Magallanes MD [Ordering Only Provider] - Forms: ED Department Discharge Additional Instructions: You were seen in the emergency room after your urine became bloody and you felt generally weak last night. Work-up in the ER included positional blood pressure checks, several blood tests, and a urinalysis. Your your urinalysis showed considerable blood in your urine, but no sign of an infection. Your blood pressure was found to drop excessively between lying and standing, a condition known as orthostasis. You were given 2 L of IV fluid in the ER, but your blood pressure continued to drop excessively. Admission to the hospital for continued IV fluid was recommended, but declined. We recommend that you stay adequately hydrated. Gatorade or Powerade are best. Be very careful when getting up from a lying or seated position, as you may feel lightheaded. In order to determine the source of the blood in your urine, you will need to follow-up with the Urologist Dr. Stew Magallanes, in [place]. Remember that they are 1 hour ahead of us. You should continue to take your regular medications, including Brilinta and aspirin. If any other problems, please do not hesitate to return to the ER. Sepsis Event Note (ED) - Evaluation Sepsis Screening Result: No Definite Risk - Focused Exam Vital Signs: Vital Signs Temp Pulse Resp BP Pulse Ox 09/25/20 19:46 36.9 C 61 20 153/77 H 98 - My Orders Last 24 Hours: My Active Orders 09/25/20 20:03 Orthostatic Vital Signs [RC] STAT 09/25/20 20:31 Orthostatic Vital Signs [RC] STAT 09/25/20 22:44 Orthostatic Vital Signs [RC] STAT - Assessment/Plan Last 24 Hours: My Active Orders 09/25/20 20:03 Orthostatic Vital Signs [RC] STAT 09/25/20 20:31 Orthostatic Vital Signs [RC] STAT 09/25/20 22:44 Orthostatic Vital Signs [RC] STAT
[2020-09-25] MEDS ORDERED: Sodium Chloride 0.9% 1,000 ML IV ONE ×2 (20:31→22:44)
== END 2020-09-26 01:05 | disposition home or self-care (01) ==
LOC: JD.ED 19:30
DX: R31.0 Gross hematuria (principal); I95.1 Orthostatic hypotension; I25.10 Atherosclerotic heart disease of native coronary artery without angina pectoris; I25.2 Old myocardial infarction; Z86.16 Personal history of COVID-19; Z79.02 Long term (current) use of antithrombotics/antiplatelets; Z79.899 Other long term (current) drug therapy; Z87.891 Personal history of nicotine dependence
CPT/HCPCS: 36415; 80053; 81001; 83735; 85007; 85027; 99284; J7030; 99283

== ENCOUNTER 2020-10-06 12:57 | Emergency (ER) | payer MEDICARE, MEDICAID ==
[2020-10-06] MEDS ORDERED: Sodium Chloride 0.9% 10 ML Syringe FLUSH PRN (13:27)
[2020-10-06] MEDS ORDERED: Sodium Chloride 0.9% 1,000 ML IV ONE (13:28)
[2020-10-06] MEDS ORDERED: HYDROmorphone 0.5 MG/0.5 ML Syringe IVPUSH ONE (13:28)
[2020-10-06] MEDS ORDERED: Ondansetron 4 MG/2 ML SDV IVPUSH ONE (13:30)
--- NOTE | 2020-10-06 13:51 | EDM.PDOC ---
ED HPI GENERAL MEDICAL PROBLEM - General Chief Complaint: Gastrointestinal Problem Stated Complaint: RT SIDE PAIN AND VOMITING GREEN BILE/WEAK Time Seen by Provider: 10/06/20 13:00 Source of Information: Reports: Patient History Limitations: Reports: No Limitations - History of Present Illness INITIAL COMMENTS - FREE TEXT/NARRATIVE: 75-year-old male presents the emergency department with complaints of right flank pain radiating down into his right abdomen and then to his scrotum. The patient states that this pain started shortly after waking up this morning. States he has vomited 3-4 times due to the severity of the pain. States that the emesis was bile colored. Prior to today he had been feeling well. He is denied any fever, chills, diarrhea or abdominal pain. 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 He has been able to drink Gatorade throughout the day and keep that down for the most part however he has not eaten today. He does have a history of kidney stones in the past. He had recent ED visit for complaints of hematuria approximately 2 weeks ago however he states this has resolved. He has not noted any alen red blood in his urine however he states it was brown in color this morning. States he did take an OxyContin 10 mg about 4 hours ago for the pain however he states this is not helped much. His primary care provider was Dr. Boni Fernandez however he has since retired and the patient will be seeing a new provider in the clinic however he does not remember the name of this provider. He is unsure whether or not he still has his appendix. right flank Pain Score (Numeric/FACES): 7 - Related Data Allergies Allergy/AdvReac Type Severity Reaction Status Date / Time morphine Allergy Irritabilit Verified 10/06/20 13:11 y Home Meds: Home Meds Codeine/Promethazine [Phenergan with Codeine] 5 ml PO Q4HR PRN #120 ml 03/25/20 [Rx] Metoprolol Succinate [Toprol XL] 25 mg PO DAILY 09/25/20 [History] Rosuvastatin [Crestor] 10 mg PO DAILY 09/25/20 [History] Spironolactone [Aldactone] 25 mg PO DAILY 09/25/20 [History] Ticagrelor [Brilinta] 90 mg PO BID 09/25/20 [History] lisinopriL [Lisinopril] 10 mg PO DAILY 09/25/20 [History] Tamsulosin HCl [Flomax] 0.4 mg PO DAILY #15 cap.er.24h 10/06/20 [Rx] oxyCODONE HCl/Acetaminophen [Percocet 5-325 mg Tablet] 1 each PO Q6H PRN #20 tablet 10/06/20 [Rx] Past Medical History Cardiovascular History: Reports: CAD, [place] Gastrointestinal History: Reports: Inflammatory Bowel Disease Other Gastrointestinal History: chron's with colostomy Genitourinary History: Reports: BPH Neurological History: Reports: CVA Other Neuro History: 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.- PT SAYS HE STILL IS WEAK IN THE RIGHT SIDE AND ALSO HAD MUMBLED SPEECH - Infectious Disease History Infectious Disease History: Reports: Measles, Novel Coronavirus - Past Surgical History HEENT Surgical History: Reports: Oral Surgery Cardiovascular Surgical History: Reports: Coronary Artery Stent GI Surgical History: Reports: Colon Social & Family History - Tobacco Use Tobacco Use Status *Q: Never Tobacco User - Caffeine Use Caffeine Use: Reports: Coffee Other Caffeine Use: decaf - Recreational Drug Use Recreational Drug Use: No - Living Situation & Occupation Living situation: Reports: , with Significant Other (Girlfriend) Occupation: Retired ED ROS GENERAL - Review of Systems Review Of Systems: Comprehensive ROS is negative, except as noted in HPI. ED EXAM, RENAL/ - Physical Exam Exam: See Below Exam Limited By: No Limitations General Appearance: Alert, WD/WN, Mild Distress, Other (pt is weak) Ears: Normal External Exam, Hearing Grossly Normal Nose: Normal Inspection Throat/Mouth: Normal Inspection, Normal Lips, Normal Voice, No Airway Compromise, Other (tongue is dry) Head: Atraumatic, Normocephalic Neck: Normal Inspection, Supple Respiratory/Chest: No Respiratory Distress, Lungs Clear, Normal Breath Sounds, No Accessory Muscle Use, Chest Non-Tender Cardiovascular: Normal Peripheral Pulses, Regular Rate, Rhythm, No Edema, No Murmur GI/Abdominal: Normal Bowel Sounds, Soft, Non-Tender, No Distention, Other (ileostomy is present ) (Male) Exam: Deferred Rectal (Males) Exam: Deferred Back Exam: Normal Inspection. No: CVA Tenderness (L), CVA Tenderness (R) Extremities: Normal Inspection, Normal Range of Motion, Non-Tender, No Pedal Edema, Normal Capillary Refill Neurological: Alert, Oriented, Normal Cognition Psychiatric: Normal Affect, Normal Mood Skin Exam: Warm, Dry, Intact, No Rash, Pallor Lymphatic: No Adenopathy Course - Vital Signs Text/Narrative:: Again, patient complains of right flank pain that started sometime this morning. He states that the pain progressively radiated around the right side of his abdomen to the right lower quadrant and then into his scrotum. States he developed nausea and vomiting after the pain started. Has vomited approximately 3-4 times of bile colored emesis. Denies any recent fever or chills. Denies any hematuria. States he does have a history of kidney stones several years ago. I have ordered labs to include a CBC, CMP, magnesium, C-reactive protein, urinalysis with micro and culture if indicated, also ordered a CT of the abdomen and pelvis without contrast to rule out kidney stone. I have ordered for the patient to receive a liter of normal saline to run wide open as he has not taken much in the way of p.o. today. He will receive Zofran for the nausea and some Dilaudid for the pain. Last Recorded V/S: Last Vital Signs Temp 97.2 F 10/06/20 15:59 Pulse 80 10/06/20 15:59 Resp 16 10/06/20 15:59 BP 146/82 H 10/06/20 15:59 Pulse Ox 95 10/06/20 15:59 - Orders/Labs/Meds Orders: Active Orders 24 hr Category Date Time Status Sodium Chloride 0.9% [Saline Flush] Med 10/06/20 13:27 Active 10 ml FLUSH ASDIRECTED PRN Saline Lock Insert [OM.PC] Stat Oth 10/06/20 13:27 Ordered Medication Orders Sodium Chloride (Sodium Chloride 0.9% 10 Ml Syringe) 10 ml FLUSH ASDIRECTED PRN PRN Reason: Keep Vein Open Last Admin: 10/06/20 14:21 Dose: 10 ml Documented by: CAYETANO Labs: Laboratory Tests 10/06/20 10/06/20 10/06/20 Range/Units 14:20 14:20 15:23 WBC 11.16 H (4.23-9.07) K/mm3 RBC 4.91 (4.63-6.08) M/mm3 Hgb 15.0 (13.7-17.5) gm/dl Hct 45.1 (40.1-51.0) % MCV 91.9 (79.0-92.2) fl MCH 30.5 (25.7-32.2) pg MCHC 33.3 (32.2-35.5) g/dl RDW Std Deviation 43.7 (35.1-43.9) fL Plt Count 212 (163-337) K/mm3 MPV 9.9 (9.4-12.3) fl Neut % (Auto) 91.0 H (34.0-67.9) % Lymph % (Auto) 4.7 L (21.8-53.1) % [place] % (Auto) 3.9 L (5.3-12.2) % Eos % (Auto) 0.1 L (0.8-7.0) Baso % (Auto) 0.1 (0.1-1.2) % Neut # (Auto) 10.16 H (1.78-5.38) K/mm3 Lymph # (Auto) 0.52 L (1.32-3.57) K/mm3 [place] # (Auto) 0.44 (0.30-0.82) K/mm3 Eos # (Auto) 0.01 L (0.04-0.54) K/mm3 Baso # (Auto) 0.01 (0.01-0.08) K/mm3 Manual Slide Review Abnormal smear Sodium 141 (136-145) mEq/L Potassium 5.1 (3.5-5.1) mEq/L Chloride 106 (98-107) mEq/L Carbon Dioxide 24 (21-32) mEq/L Anion Gap 16.1 H (5-15) BUN 17 (7-18) mg/dL Creatinine 1.3 (0.7-1.3) mg/dL Est Cr Clr Drug Dosing 51.47 mL/min Estimated GFR (MDRD) 54 (>60) mL/min BUN/Creatinine Ratio 13.1 L (14-18) Glucose 143 H (70-99) mg/dL Calcium 9.3 (8.5-10.1) mg/dL Magnesium 2.1 (1.8-2.4) mg/dL Total Bilirubin 0.6 (0.2-1.0) mg/dL AST 21 (15-37) U/L ALT 38 (16-63) U/L Alkaline Phosphatase 94 (46-116) U/L C-Reactive Protein <0.2 (<1.0) mg/dL Total Protein 7.9 (6.4-8.2) g/dl Albumin 4.1 (3.4-5.0) g/dl Globulin 3.8 gm/dL Albumin/Globulin Ratio 1.1 (1-2) Urine Color (Yellow) Urine Appearance (Clear) Urine pH (5.0-8.0) Ur Specific [place] (1.005-1.030) Urine Protein (Negative) Urine Glucose (UA) (Negative) Urine Ketones (Negative) Urine Occult Blood (Negative) Urine Nitrite (Negative) Urine Bilirubin (Negative) Urine Urobilinogen (0.2-1.0) Ur Leukocyte Esterase (Negative) Urine RBC (0-5) /hpf Urine WBC (0-5) /hpf Ur Squamous Epith Cells (0-5) /hpf Uric Acid Crystals (NONE) Urine Bacteria (FEW) /hpf Urine Mucus (FEW) /hpf SARS-CoV-2 RNA (ARELI) Negative (NEGATIVE) 10/06/20 Range/Units 15:30 WBC (4.23-9.07) K/mm3 RBC (4.63-6.08) M/mm3 Hgb (13.7-17.5) gm/dl Hct (40.1-51.0) % MCV (79.0-92.2) fl MCH (25.7-32.2) pg MCHC (32.2-35.5) g/dl RDW Std Deviation (35.1-43.9) fL Plt Count (163-337) K/mm3 MPV (9.4-12.3) fl Neut % (Auto) (34.0-67.9) % Lymph % (Auto) (21.8-53.1) % [place] % (Auto) (5.3-12.2) % Eos % (Auto) (0.8-7.0) Baso % (Auto) (0.1-1.2) % Neut # (Auto) (1.78-5.38) K/mm3 Lymph # (Auto) (1.32-3.57) K/mm3 [place] # (Auto) (0.30-0.82) K/mm3 Eos # (Auto) (0.04-0.54) K/mm3 Baso # (Auto) (0.01-0.08) K/mm3 Manual Slide Review Sodium (136-145) mEq/L Potassium (3.5-5.1) mEq/L Chloride (98-107) mEq/L Carbon Dioxide (21-32) mEq/L Anion Gap (5-15) BUN (7-18) mg/dL Creatinine (0.7-1.3) mg/dL Est Cr Clr Drug Dosing mL/min Estimated GFR (MDRD) (>60) mL/min BUN/Creatinine Ratio (14-18) Glucose (70-99) mg/dL Calcium (8.5-10.1) mg/dL Magnesium (1.8-2.4) mg/dL Total Bilirubin (0.2-1.0) mg/dL AST (15-37) U/L ALT (16-63) U/L Alkaline Phosphatase (46-116) U/L C-Reactive Protein (<1.0) mg/dL Total Protein (6.4-8.2) g/dl Albumin (3.4-5.0) g/dl Globulin gm/dL Albumin/Globulin Ratio (1-2) Urine Color Yellow (Yellow) Urine Appearance Slt cloudy H (Clear) Urine pH 5.5 (5.0-8.0) Ur Specific [place] > or = 1.030 (1.005-1.030) Urine Protein 2+ H (Negative) Urine Glucose (UA) Negative (Negative) Urine Ketones Negative (Negative) Urine Occult Blood 3+ H (Negative) Urine Nitrite Negative (Negative) Urine Bilirubin Negative (Negative) Urine Urobilinogen 0.2 (0.2-1.0) Ur Leukocyte Esterase Negative (Negative) Urine RBC >100 H (0-5) /hpf Urine WBC 0-5 (0-5) /hpf Ur Squamous Epith Cells 0-5 (0-5) /hpf Uric Acid Crystals Few H (NONE) Urine Bacteria Few (FEW) /hpf Urine Mucus Few (FEW) /hpf SARS-CoV-2 RNA (ARELI) (NEGATIVE) Meds: Medications Generic Name Dose Route Start Last Admin Trade Name Freq PRN Reason Stop Dose Admin Sodium Chloride 10 ml 10/06/20 13:27 10/06/20 14:21 Sodium Chloride 0.9% 10 Ml Syringe FLUSH 10 ml ASDIRECTED PRN Administration Keep Vein Open Discontinued Medications Generic Name Dose Route Start Last Admin Trade Name Cheikh PRN Reason Stop Dose Admin Hydromorphone HCl 0.5 mg 10/06/20 13:28 10/06/20 14:25 Hydromorphone 0.5 Mg/0.5 Ml Syringe IVPUSH 10/06/20 13:29 0.5 mg ONETIME ONE Administration Hydromorphone HCl 1 mg 10/06/20 15:21 10/06/20 15:30 Hydromorphone 1 Mg/Ml Syringe IVPUSH 10/06/20 15:22 1 mg ONETIME ONE Administration Sodium Chloride 1,000 mls @ 999 mls/hr 10/06/20 13:28 10/06/20 14:29 Normal Saline IV 10/06/20 14:28 999 mls/hr ONETIME ONE Administration Ceftriaxone Sodium 1 gm/ 100 mls @ 200 mls/hr 10/06/20 14:16 10/06/20 14:36 Sodium Chloride IV 10/06/20 14:45 200 mls/hr ONETIME ONE Administration Ondansetron HCl 4 mg 10/06/20 13:30 10/06/20 14:23 Ondansetron 4 Mg/2 Ml Sdv IVPUSH 10/06/20 13:31 4 mg ONETIME ONE Administration Tamsulosin HCl 0.4 mg 10/06/20 16:02 10/06/20 16:15 Tamsulosin 0.4 Mg Cap.Er PO 10/06/20 16:03 0.4 mg ONETIME ONE Administration - Re-Assessments/Exams Free Text/Narrative Re-Assessment/Exam: 10/06/20 14:[address] of the abdomen and pelvis: Abnormal right kidney caused by an obstructing calculus located slightly past the right UPJ measuring 6-1/2 to 7 mm. There is a very minimal nonobstructing stone within the left kidney. 2. Prior colectomy with ostomy within the right lower abdomen. 3. Small calcified gallstones. 4. Other findings as noted above which are likely incidental. 10/06/20 14:16 I have ordered for the patient to receive Rocephin 1 gm IV. 10/06/20 15:37 Hematology reveals a WBC of 11.16, hemoglobin 15.0, hematocrit 45.1, platelet count 212, neutrophil percentage 91.0 Chemistry reveals a sodium of 141, potassium 5.1, chloride 106, carbon dioxide 24, anion gap 16.1, BUN 17, creatinine 1.3, glucose 143, magnesium 2.1, C- reactive protein less than 0.2 I called [facility] in [place] and spoke with , urologist on-call, regarding this patient. At this time he is not concerned regarding immediate treatment for this patient. He states that they does not appear to have any sort of infectious process happening at this time and so urgent treatment is not warranted. The main concern is pain control. He recommends the patient be sent home with pain medication. Should the patient not be able to have his pain controlled he can return to the emergency department and be transferred to [facility] for pain control and then have a stent placed. I still have not received a urinalysis back on this patient however his white count is only slightly elevated and this is likely due to a stress response and C-reactive protein is negative. He states that I could send the patient home on Flomax and pain medication and the patient could follow-up for an appointment next week in the clinic. The patient is requesting that I call [facility] however I'm going to wait till I have the urinalysis back. 10/06/20 1522 Patient states that the initial dose of Dilaudid did not seem to help his pain. I have ordered for him to receive 1 mg of Dilaudid IV x1 dose now. 10/06/20 16:00 Patient states his pain level is now down to 3 out of 10. States it is much more tolerable. I have also ordered for the patient to receive a dose of Flomax. I am still waiting on urinalysis results. 10/06/20 16:43 Urinalysis reveals 2+ protein, 3+ occult blood, nitrate negative, leukocyte Estrace negative, urine RBC greater than 100, few uric acid crystals, Covid is negative. 10/06/20 17:02 Patient will be discharged to home per Dr. Rangel, recommendations with Flomax and Percocet for pain control. Patient has been instructed to strain all his urine. He has been instructed to schedule an appointment with [facility] first thing tomorrow. Departure - Departure Time of Disposition: 16:51 Disposition: Home, Self-Care 01 Condition: Good Clinical Impression: Kidney stone - Discharge Information Prescriptions: Tamsulosin HCl [Flomax] 0.4 mg PO DAILY #15 cap.er.24h oxyCODONE HCl/Acetaminophen [Percocet 5-325 mg Tablet] 1 each PO Q6H PRN #20 tablet PRN Reason: Pain (Moderate 4-6) Instructions: Kidney Stones, [id number] Referrals: PCP,None [Primary Care Provider] - Forms: ED Department Discharge Additional Instructions: You were seen in the emergency department today with complaints of right flank pain, nausea and vomiting. Labs and a CT scan were completed. The CT scan did indicate that you have a 6.5 to 7 mm stone in your right ureter. At this time there is no sign of infection in your blood work or in your urine. You were given IV fluids, pain medications, nausea medication and Flomax. I spoke with the urologist on-call at [facility] in [place],Dr. Rangel, and he stated that there was no urgent treatment indicated at this time as you do not have any signs of infection. He recommends that we send you home with Flomax and pain medication and you call to schedule an appointment with one of the urologists at [facility] first thing next week. The phone number for [facility] is [phone]. Please call first thing tomorrow morning to schedule this appointment. I have sent a prescription for Flomax medication to help dilate your ureters to your pharmacy. You need to take 1 tab daily. You were given 1 tab while in the emergency department. I have also sent a prescription to your pharmacy for Percocet narcotic pain medication. You can take 1 tab every 6 hours as needed for moderate pain. Keep in mind that this medication will make you drowsy so you should not be driving or operating any kind of heavy equipment while taking this medication. If you are taking a lot of this medication keep in mind that it can make you constipated so you likely should take a stool softener along with this medication. A strainer for your urine has been sent home with you. Drink plenty of fluids to stay hydrated as this will help to pass the stone. Recommend straining all your urine so you can tell when you have passed the stone. Again, the urologist stated that you have about a 30% chance at passing the stone on your own. Should your condition worsen or change, do not hesitate returning to the emergency department. Sepsis Event Note (ED) - Evaluation Sepsis Screening Result: No Definite Risk - Focused Exam Vital Signs: Vital Signs Temp Pulse Resp BP Pulse Ox 10/06/20 15:59 97.2 F 80 16 146/82 H 95 10/06/20 14:30 97.1 F 70 18 154/80 H 100 10/06/20 13:08 96.3 F L 63 18 159/87 H 97 - My Orders Last 24 Hours: My Active Orders 10/06/20 13:27 Sodium Chloride 0.9% [Saline Flush] 10 ml FLUSH ASDIRECTED PRN Saline Lock Insert [OM.PC] Stat - Assessment/Plan Last 24 Hours: My Active Orders 10/06/20 13:27 Sodium Chloride 0.9% [Saline Flush] 10 ml FLUSH ASDIRECTED PRN Saline Lock Insert [OM.PC] Stat
--- NOTE | 2020-10-06 14:03 | CT ---
CT abdomen and pelvis Technique: Multiple axial sections were obtained from above the dome of the diaphragm inferiorly through the pubic symphysis. Intravenous and oral contrast were not utilized. Study has been performed as a ureteral stone protocol. Findings: Right kidney is enlarged. Right kidney shows hydronephrosis. These findings are caused by an obstructing stone within the proximal right ureter measuring approximately 6.5-7 mm. The calculus is located slightly past the UPJ. Inflammatory change is noted around the right kidney which is felt to relate to the obstruction. Minimal calcification is seen within left kidney compatible with a very minimal nonobstructing stone. Visualized lung bases show nothing acute. Noncontrast appearance of the liver shows no focal abnormality. Several calcified gallstones are seen within the gallbladder. Spleen size is normal. Adrenal glands show no nodule. Pancreas appears within normal limits. Abdominal aorta shows atherosclerotic change. 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 Atherosclerotic change continues into the iliac vessels. No retroperitoneal adenopathy or mesenteric abnormalities are seen. Previous colectomy is noted. There is an ostomy being seen within the right lower abdomen. No pelvic mass or adenopathy is seen. Prostate gland is slightly enlarged and contains calcifications. Bone window settings were reviewed which show scattered degenerative endplate spurring within the spine. Degenerative change is also noted within both hips. Impression: 1. Abnormal right kidney caused by an obstructing calculus located slightly past the right UPJ measuring 6.5-7 mm. There is a very minimal nonobstructing stone within the left kidney. 2. Prior colectomy with ostomy within the right lower abdomen. 3. Small calcified gallstones. 4. Other findings as noted above which are likely incidental. Diagnostic code #3
[2020-10-06] MEDS ORDERED: cefTRIAXone 1 GM in Sodium Chloride 0.9% 100 ML IV ONE (14:16)
[2020-10-06] MEDS ORDERED: HYDROmorphone 1 MG/ML Syringe IVPUSH ONE (15:21)
[2020-10-06] MEDS ORDERED: Tamsulosin 0.4 MG Cap.ER PO ONE (16:02)
== END 2020-10-06 17:15 | disposition home or self-care (01) ==
LOC: JD.ED 12:57
DX: N13.2 Hydronephrosis with renal and ureteral calculous obstruction (principal); I25.10 Atherosclerotic heart disease of native coronary artery without angina pectoris; I25.2 Old myocardial infarction; Z79.02 Long term (current) use of antithrombotics/antiplatelets; Z79.899 Other long term (current) drug therapy; Z95.5 Presence of coronary angioplasty implant and graft; Z88.6 Allergy status to analgesic agent; Z20.822 Contact with and (suspected) exposure to COVID-19
CPT/HCPCS: 36415; 74176; 80053; 81001; 83735; 85025; 86140; 96365; 96375; 96376; 99284; A9270; J0696; J1170; J2405; J7030; U0002

== ENCOUNTER 2020-10-08 05:13 | Emergency (ER) | payer MEDICARE, MEDICAID ==
--- NOTE | 2020-10-08 06:21 | EDM.PDOC ---
ED HPI GENERAL MEDICAL PROBLEM - General Chief Complaint: Genitourinary Problem Stated Complaint: KIDNEY STONE Time Seen by Provider: 10/08/20 05:26 Source of Information: Reports: Patient History Limitations: Reports: No Limitations - History of Present Illness INITIAL COMMENTS - FREE TEXT/NARRATIVE: Mr. Velarde is a very pleasant 75-year-old gentleman who, medical records indic ate, was seen in this ED 2 days ago, , 10/06/2020, for a complaint at that time of right flank pain that radiated into his right abdomen and to his scrotum that developed that morning. He had nausea with 3-4 episodes of vomiting. He denied recent fever, chills, or diarrhea. No gross hematuria. He had taken some OxyContin 10 mg about 4 hours prior, which did not help much. He was found to be hemodynamically stable, afebrile, saturating 95% on room air. His physical exam was grossly unremarkable, including a nontender abdomen and no CVA tenderness. Work-up included a CBC, CMP, magnesium level, CRP, urinalysis, a swab for the SARS-CoV-2 virus, and a CT of the abdomen and pelvis without contrast. The patient's blood work was unremarkable and his a swab for the SARS-CoV-2 virus was negative, but his urinalysis demonstrated 3+ occult blood with >100 RBCs. Leukocyte esterase was negative, and only 0-5 WBCs with few bacteria. The CT scan demonstrated a 6.5-7 mm stone slightly past the right UPJ. The patient's case was discussed with a Urologist, who did not feel that urgent treatment was warranted, as there was no infectious process. He recommended that the patient be discharged home with pain medication, then follow-up as an outpatient. He also stated, however, that if the patient's pain was uncontrollable at home, that he could return to the ED in order to be majano sferred to [facility] for pain control and stent placement. The patient was discharged home with a prescription for tamsulosin 0.4 mg daily #15 and Percocet 5/325, 1 tab po Q6 hrs prn #20. The patient now returns to the ED stating that he has been taking his tamsulosin and Percocet as prescribed, but that he developed nausea and vomiting last night, with decreased oral intake, increased pain now up to 9/10, generalized pruritus, and visual hallucinations - he states that he can see a lion lying across the room. No recent fever. Here in the ED, the patient is found to be hemodynamically stable, afebrile, saturating 96% on room air. He appears to be relatively comfortable lying semirecumbent on the gurney, in no acute distress. Prior to , the patient denies having a recent fever, chills, sore throat, ear pain, nasal or sinus congestion, cough, dyspnea, chest pain, palpitations, nausea, vomiting, constipation, diarrhea, abdominal pain, urinary symptoms, recent weight gain or weight loss, recent bloody bowel movements or black bowel movements, recent joint aches, headaches, or rashes. I reviewed the PMHx/PSHx/SocHx, which was reviewed with the patient by the RN. The patient's PCP was Dr. Boni Fernandez; he does not recall the name of his new PCP. His Urologist is Dr. Elisabeth Rangel. Right Flank Pain Score (Numeric/FACES): 2 - Related Data Allergies Allergy/AdvReac Type Severity Reaction Status Date / Time morphine Allergy Severe Irritabilit Verified 10/08/20 05:26 y Home Meds: Home Meds Codeine/Promethazine [Phenergan with Codeine] 5 ml PO Q4HR PRN #120 ml 03/25/20 [Rx] Metoprolol Succinate [Toprol XL] 25 mg PO DAILY 09/25/20 [History] Rosuvastatin [Crestor] 10 mg PO DAILY 09/25/20 [History] Spironolactone [Aldactone] 25 mg PO DAILY 09/25/20 [History] Ticagrelor [Brilinta] 90 mg PO BID 09/25/20 [History] lisinopriL [Lisinopril] 10 mg PO DAILY 09/25/20 [History] Tamsulosin HCl [Flomax] 0.4 mg PO DAILY #15 cap.er.24h 10/06/20 [Rx] oxyCODONE HCl/Acetaminophen [Percocet 5-325 mg Tablet] 1 each PO Q6H PRN #20 tablet 10/06/20 [Rx] Past Medical History Cardiovascular History: Reports: CAD, Hypertension, [place] Gastrointestinal History: Reports: Inflammatory Bowel Disease Other Gastrointestinal History: chron's with colostomy Genitourinary History: Reports: BPH, Renal Calculus Neurological History: Reports: CVA Other Neuro History: 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.- PT SAYS HE STILL IS WEAK IN THE RIGHT SIDE AND ALSO HAD MUMBLED SPEECH - Infectious Disease History Infectious Disease History: Reports: Measles, Novel Coronavirus - Past Surgical History HEENT Surgical History: Reports: Oral Surgery Cardiovascular Surgical History: Reports: Coronary Artery Stent GI Surgical History: Reports: Colon Social & Family History - Family History Family Medical History: No Pertinent Family History - Tobacco Use Tobacco Use Status *Q: Former Tobacco User Used Tobacco, but Quit: Yes Month/Year Tobacco Last Used: 09/1982 - Caffeine Use Caffeine Use: Reports: None Other Caffeine Use: decaf - Recreational Drug Use Recreational Drug Use: No - Living Situation & Occupation Living situation: Reports: , with Significant Other (Girlfriend) Occupation: Retired ED ROS GENERAL - Review of Systems Review Of Systems: Comprehensive ROS is negative, except as noted in HPI. ED EXAM, RENAL/ - Physical Exam Exam: See Below Exam Limited By: No Limitations General Appearance: Alert, WD/WN, No Apparent Distress Eye Exam: Bilateral Eye: EOMI, Normal Inspection Ears: Normal External Exam, Hearing Grossly Normal Nose: Normal Inspection Throat/Mouth: Normal Inspection, Normal Lips, Normal Voice, No Airway Compromise Head: Atraumatic, Normocephalic Neck: Normal Inspection, Full Range of Motion Respiratory/Chest: No Respiratory Distress, Lungs Clear, Normal Breath Sounds, No Accessory Muscle Use Cardiovascular: Normal Peripheral Pulses, Regular Rate, Rhythm, No Edema, No Gallop, No JVD, No Murmur, No Rub GI/Abdominal: Normal Bowel Sounds, Soft, No Organomegaly, No Distention, No Abnormal Bruit, No Mass, Other (Ileostomy RLQ) Back Exam: Normal Inspection, Full Range of Motion. No: CVA Tenderness (L), CVA Tenderness (R) Extremities: Normal Inspection, Normal Range of Motion, No Pedal Edema, Normal Capillary Refill Neurological: Alert, Oriented, Normal Cognition, Normal Gait, Normal Reflexes, No Motor/Sensory Deficits Psychiatric: Normal Affect Skin Exam: Warm, Dry, Intact, Normal Color, No Rash Course - Vital Signs Last Recorded V/S: Last Vital Signs Temp 36.6 C 10/08/20 05:19 Pulse 70 10/08/20 05:19 Resp 18 10/08/20 05:19 BP 135/74 10/08/20 05:19 Pulse Ox 96 10/08/20 05:19 - Orders/Labs/Meds Orders: Active Orders 24 hr Category Date Time Status Nothing per Oral Now Diet [DIET] Diet 10/08/20 Breakfast Ordered Sodium Chloride 0.9% @ 100 MLS/HR(1000ml Bag) Med 10/08/20 06:45 Ordered Sodium Chloride 0.9% [Normal Saline] 1,000 ml IV ASDIRECTED Medication Orders Sodium Chloride (Normal Saline) 1,000 mls @ 100 mls/hr IV ASDIRECTED LOUIE Meds: Medications Generic Name Dose Route Start Last Admin Trade Name Freq PRN Reason Stop Dose Admin Sodium Chloride 1,000 mls @ 100 mls/hr 10/08/20 06:45 Normal Saline IV ASDIRECTED LOUIE Discontinued Medications Generic Name Dose Route Start Last Admin Trade Name Freq PRN Reason Stop Dose Admin Ondansetron HCl 4 mg 10/08/20 06:40 Ondansetron 4 Mg/2 Ml Sdv IVPUSH 10/08/20 06:41 ONETIME ONE - Re-Assessments/Exams Free Text/Narrative Re-Assessment/Exam: 10/08/20 06:05 As above, the patient was seen in this ED on for right flank pain. A work-up revealed a 6.5 to 7 mm stone located at the right UPJ. The ED provider spoke with Dr. Rangel, who did not feel that urgent treatment was warranted, as there are was no suggestion of an infection. He recommended the patient be discharged home with pain medication, but that if the patient's symptoms were intolerable, that he could be transferred to [facility] for pain control and stent placement. He was discharged home with a prescription for tamsulosin and Percocet 5/325, 1 tab po Q6 hrs, #20. The patient now returns the ED stating that he has been taking the Percocet as prescribed, but that he developed nausea and vomiting last night, with decreased oral intake, increased pain, generalized pruritus, and visual hallucinations. Clearly, the patient is not tolerating the Percocet very well. 10/08/20 06:32 Case discussed with Sherrie at [facility] at 06:23. Sherrie notified me at 06:29 that she had spoken with Dr. Rangel, and that he was okay to have the patient transferred. Case discussed with Dr. Barrera, Hospitalist at [facility], at 06:29. He accepted the patient for transfer to their facility. They do not need a repeat COVID test. Departure - Departure Time of Disposition: 06:34 Disposition: DC/Tfer to Acute Hospital 02 Condition: Good Clinical Impression: Ureterolithiasis - Discharge Information *PRESCRIPTION DRUG MONITORING PROGRAM REVIEWED*: Not Applicable *COPY OF PRESCRIPTION DRUG MONITORING REPORT IN PATIENT [place]: Not Applicable Referrals: Elisabeth Rangel MD [Ordering Only Provider] - PCP,Unknown [Ordering Only Provider] - Forms: ED Department Discharge Sepsis Event Note (ED) - Evaluation Sepsis Screening Result: No Definite Risk - Focused Exam Vital Signs: Vital Signs Temp Pulse Resp BP Pulse Ox 10/08/20 05:19 36.6 C 70 18 135/74 96 - My Orders Last 24 Hours: My Active Orders 10/08/20 06:45 Sodium Chloride 0.9% @ 100 MLS/HR(1000ml Bag) Sodium Chloride 0.9% [Normal Saline] 1,000 ml IV ASDIRECTED 10/08/20 Breakfast Nothing per Oral Now Diet [DIET] - Assessment/Plan Last 24 Hours: My Active Orders 10/08/20 06:45 Sodium Chloride 0.9% @ 100 MLS/HR(1000ml Bag) Sodium Chloride 0.9% [Normal Saline] 1,000 ml IV ASDIRECTED 10/08/20 Breakfast Nothing per Oral Now Diet [DIET]
[2020-10-08] MEDS ORDERED: Ondansetron 4 MG/2 ML SDV IVPUSH ONE (06:40)
[2020-10-08] MEDS ORDERED: Sodium Chloride 0.9% 1,000 ML IV SCH (06:45)
[2020-10-08] MEDS ORDERED: Ketorolac 30 MG/ML SDV IVPUSH STA (06:49)
== END 2020-10-08 07:10 ==
LOC: JD.ED 05:13
DX: N20.1 Calculus of ureter (principal); I25.10 Atherosclerotic heart disease of native coronary artery without angina pectoris; I10 Essential (primary) hypertension; I25.2 Old myocardial infarction; Z86.16 Personal history of COVID-19; Z87.891 Personal history of nicotine dependence; Z88.6 Allergy status to analgesic agent
CPT/HCPCS: 96374; 96375; 99284; J1885; J2405; J7030; 99285

== ENCOUNTER 2020-10-11 02:03 | Emergency (ER) | payer MEDICARE, MEDICAID ==
--- NOTE | 2020-10-11 02:31 | EDM.PDOC ---
ED HPI GENERAL MEDICAL PROBLEM - General Chief Complaint: Genitourinary Problem Stated Complaint: blood in urine Time Seen by Provider: 10/11/20 02:13 Source of Information: Reports: Patient, Significant Other (Girlfriend) History Limitations: Reports: No Limitations - History of Present Illness INITIAL COMMENTS - FREE TEXT/NARRATIVE: Mr. Velarde is a very pleasant 75-year-old gentleman who was seen in this ED on , 10/06/2020 for a complaint of that time of right flank pain that radiated into his right abdomen and to his scrotum that had developed that morning. No gross hematuria. He had had some nausea and vomiting. No recent fever or chills. Work-up included a CT scan which found a 6.5 to 7 mm stone at the right UPJ. His case was discussed with a urologist, but ultimately he was discharged home with a prescription for Percocet and tamsulosin. He then returned to the ED on 10/08/2020, complaining of nausea, vomiting, decreased oral and case, and inadequately controlled pain, general pruritus, and visual hallucinations. He was transferred to [facility] in order to undergo surgical treatment of his stone. The patient now returns the ED stating that he underwent ureteroscopy and laser fragmentation of the stone yesterday morning, 10/10/2020. He was discharged home yesterday evening. He states that he does not recall speaking to his Urologist postoperatively, and therefore cannot say what he was told to expect. He states that he developed gross hematuria and urinary urgency after surgery, then developed some pain in his perennial area when he sits, yesterday afternoon. He notes that he has decreased urine output if he sits on the toilet, but that his urine output improves if he stands to urinate. No recent fever, nausea, or vomiting. Here in the ED, the patient is found to be hemodynamically stable, afebrile, saturating 94% on room air. He appears to be relatively comfortable, in no acute distress. Prior to 10/06/2020, the patient denies having a recent fever, chills, sore throat, ear pain, nasal or sinus congestion, cough, dyspnea, chest pain, palpitations, nausea, vomiting, constipation, diarrhea, abdominal pain, urinary symptoms, recent weight gain or weight loss, recent bloody bowel movements or black bowel movements, recent joint aches, headaches, or rashes. The patient's PCP was Dr. Boni Fernandez; he does not recall the name of his new PCP. His Urologist is Dr. Elisabeth Rangel. Perineal Area Pain Score (Numeric/FACES): 4 - Related Data Allergies Allergy/AdvReac Type Severity Reaction Status Date / Time morphine Allergy Severe Irritabilit Verified 10/11/20 02:18 y Home Meds: Home Meds Codeine/Promethazine [Phenergan with Codeine] 5 ml PO Q4HR PRN #120 ml 03/25/20 [Rx] Metoprolol Succinate [Toprol XL] 25 mg PO DAILY 09/25/20 [History] Rosuvastatin [Crestor] 10 mg PO DAILY 09/25/20 [History] Spironolactone [Aldactone] 25 mg PO DAILY 09/25/20 [History] Ticagrelor [Brilinta] 90 mg PO BID 09/25/20 [History] lisinopriL [Lisinopril] 10 mg PO DAILY 09/25/20 [History] Tamsulosin HCl [Flomax] 0.4 mg PO DAILY #15 cap.er.24h 10/06/20 [Rx] oxyCODONE HCl/Acetaminophen [Percocet 5-325 mg Tablet] 1 each PO Q6H PRN #20 tablet 10/06/20 [Rx] Past Medical History Cardiovascular History: Reports: CAD, Hypertension, [place] Gastrointestinal History: Reports: Inflammatory Bowel Disease (Crohn disease) Genitourinary History: Reports: BPH, Renal Calculus Neurological History: Reports: CVA - Infectious Disease History Infectious Disease History: Reports: Measles, Novel Coronavirus - Past Surgical History HEENT Surgical History: Reports: Oral Surgery Cardiovascular Surgical History: Reports: Coronary Artery Stent GI Surgical History: Reports: Colon (colostomy) Male Surgical History: Reports: Lithotripsy ([facility]) (10/10/2020) Social & Family History - Tobacco Use Tobacco Use Status *Q: Former Tobacco User Second Hand Smoke Exposure: No - Caffeine Use Caffeine Use: Reports: Coffee Other Caffeine Use: decaf - Recreational Drug Use Recreational Drug Use: No - Living Situation & Occupation Living situation: Reports: , with Significant Other (Girlfriend) Occupation: Retired ED ROS GENERAL - Review of Systems Review Of Systems: Comprehensive ROS is negative, except as noted in HPI. ED EXAM, RENAL/ - Physical Exam Exam: See Below Exam Limited By: No Limitations General Appearance: Alert, WD/WN, No Apparent Distress Eye Exam: Bilateral Eye: EOMI, Normal Inspection Ears: Normal External Exam, Hearing Grossly Normal Nose: Normal Inspection Throat/Mouth: Normal Inspection, Normal Lips, Normal Voice, No Airway Compromise Head: Atraumatic, Normocephalic Neck: Normal Inspection, Full Range of Motion Respiratory/Chest: No Respiratory Distress, Lungs Clear, Normal Breath Sounds, No Accessory Muscle Use Cardiovascular: Normal Peripheral Pulses, Regular Rate, Rhythm, No Edema, No Gallop, No JVD, No Murmur, No Rub GI/Abdominal: Normal Bowel Sounds, Soft, No Organomegaly, No Distention, No Abnormal Bruit, No Mass, Tender (Suprapubic region only. Nontender elsewhere.) Back Exam: Normal Inspection, Full Range of Motion. No: CVA Tenderness (L), CVA Tenderness (R) Extremities: Normal Inspection, Normal Range of Motion, No Pedal Edema, Normal Capillary Refill Neurological: Alert, Oriented, Normal Cognition, No Motor/Sensory Deficits Psychiatric: Normal Affect Skin Exam: Warm, Dry, Intact, Normal Color, No Rash Course - Vital Signs Last Recorded V/S: Last Vital Signs Temp 36.6 C 10/11/20 02:15 Pulse 98 10/11/20 02:15 Resp 18 10/11/20 02:15 BP 119/72 10/11/20 02:15 Pulse Ox 94 L 10/11/20 02:15 - Orders/Labs/Meds Orders: Active Orders 24 hr Category Date Time Status Bladder Scan [RC] ASDIRECTED Care 10/11/20 02:27 Active Insert Urinary Catheter [OM.PC] Q24H Care 10/11/20 02:45 Ordered Urinary Catheter Assessment [RC] ASDIRECTED Care 10/11/20 02:33 Active - Re-Assessments/Exams Free Text/Narrative Re-Assessment/Exam: 10/11/20 02:29 As above, the patient underwent ureteroscopy and laser fragmentation of a right ureterolith yesterday morning at [facility], and was discharged home yesterday evening. Postoperatively, he developed gross hematuria and urinary urgency, along with some pain in his perineal area. He does not recall talking to his Urologist postoperatively, and therefore cannot say what he was told to expect. He noticed decreased urine output if he is sitting on the toilet, but it improves if he stands. On examination, the patient has some suprapubic tenderness, otherwise, his physical exam is grossly unremarkable. I have ordered a bladder scan to evaluate for urinary retention. 10/11/20 02:32 3 separate bladder scans reveal 620, 661, and 645 mL of urine in the bladder. I will order a 3-way catheter with irrigation of the bladder. 10/11/20 03:10 At this point, the irrigated fluid is running colorless, therefore I will have his nurse remove the catheter and discharge him home. Departure - Departure Time of Disposition: 03:10 Disposition: Home, Self-Care 01 Condition: Good Clinical Impression: Gross hematuria, Postprocedural urinary retention - Discharge Information *PRESCRIPTION DRUG MONITORING PROGRAM REVIEWED*: Not Applicable *COPY OF PRESCRIPTION DRUG MONITORING REPORT IN PATIENT [place]: Not Applicable Referrals: [place] PA-C [Physician Manager Of Case Management] - Elisabeth Rangel MD [Ordering Only Provider] - Forms: ED Department Discharge Additional Instructions: You were seen in the emergency room after developing bloody urine with urinary urgency and decreased urine output following surgical ureteroscopy with laser fragmentation of a kidney stone yesterday morning. On evaluation, bladder scan found over 600 mL of urine. You underwent placement of a three-way catheter and irrigation of the bladder, with successful clearing of blood clots. At this point, you should be able to urinate normally. Follow your postoperative discharge instructions from [facility]. If you again develop the inability to urinate, please do not hesitate to return to the ER. Sepsis Event Note (ED) - Evaluation Sepsis Screening Result: No Definite Risk - Focused Exam Vital Signs: Vital Signs Temp Pulse Resp BP Pulse Ox 10/11/20 02:15 36.6 C 98 18 119/72 94 L - My Orders Last 24 Hours: My Active Orders 10/11/20 02:27 Bladder Scan [RC] ASDIRECTED 10/11/20 02:33 Urinary Catheter Assessment [RC] ASDIRECTED 10/11/20 02:45 Insert Urinary Catheter [OM.PC] Q24H - Assessment/Plan Last 24 Hours: My Active Orders 10/11/20 02:27 Bladder Scan [RC] ASDIRECTED 10/11/20 02:33 Urinary Catheter Assessment [RC] ASDIRECTED 10/11/20 02:45 Insert Urinary Catheter [OM.PC] Q24H
== END 2020-10-11 03:23 | disposition home or self-care (01) ==
LOC: JD.ED 02:03
DX: N99.89 Other postprocedural complications and disorders of genitourinary system (principal); R33.9 Retention of urine, unspecified; R31.0 Gross hematuria; I25.10 Atherosclerotic heart disease of native coronary artery without angina pectoris; I10 Essential (primary) hypertension; I25.2 Old myocardial infarction; N40.0 Benign prostatic hyperplasia without lower urinary tract symptoms; Z88.5 Allergy status to narcotic agent; Z86.73 Personal history of transient ischemic attack (TIA), and cerebral infarction without residual deficits; Z87.891 Personal history of nicotine dependence
CPT/HCPCS: 51702; 99283-25; 99284

== ENCOUNTER 2020-10-11 14:08 | Emergency (ER) | payer MEDICARE, MEDICAID | END 2020-10-11 14:44 | disposition left against medical advice (07) | LOC: JD.ED 14:08 | DX: Z53.21 Procedure and treatment not carried out due to patient leaving prior to being seen by health care provider (principal) ==

== ENCOUNTER 2020-11-10 04:54 | Emergency (ER) | payer MEDICARE, MEDICAID ==
--- NOTE | 2020-11-10 05:48 | EDM.PDOC ---
<Gamaliel Stahl Prem - Last Filed: 11/10/20 08:22> ED HPI GENERAL MEDICAL PROBLEM - General Chief Complaint: Gastrointestinal Problem Stated Complaint: DEHYDRATED Time Seen by Provider: 11/10/20 05:30 Source of Information: Reports: Patient History Limitations: Reports: No Limitations - History of Present Illness INITIAL COMMENTS - FREE TEXT/NARRATIVE: Mr. Velarde is a pleasant 75-year-old gentleman who now presents the ED stating that he has had nausea, vomiting, and a headache felt on the top of his head since approximately this past 11/07/2020. He also reports feeling lightheaded on and off, but he cannot say how long that has been going on. No recent fever or urinary symptoms. The patient has a colostomy, but denies watery output. He states that he is generally feeling tired and fatigued, that he believes is because his apartment is 89 degrees despite air-conditioning and fans. He states that he feels dehydrated. He also reports that he sometimes feels dyspneic. He denies orthopnea. No recent chest pain or palpitations. Here in the ED, the patient's initial BP is found to be elevated at 165/77, otherwise, he is afebrile, saturating 96% on room air. He is in no acute distress. Prior to Saturday, the patient denies having a recent fever, chills, sore throat, ear pain, nasal or sinus congestion, cough, dyspnea, chest pain, palpitations, nausea, vomiting, constipation, diarrhea, abdominal pain, urinary symptoms, recent weight gain or weight loss, recent bloody bowel movements or black bowel movements, recent joint aches, headaches, or rashes. The patient does not have a PCP, but hopes to see Dr. Fabricio Coto. His Urologist is Dr. Elisabeth Rangel. - Related Data Allergies Allergy/AdvReac Type Severity Reaction Status Date / Time morphine Allergy Severe Irritabilit Verified 11/10/20 05:03 y Home Meds: Home Meds Codeine/Promethazine [Phenergan with Codeine] 5 ml PO Q4HR PRN #120 ml 03/25/20 [Rx] Metoprolol Succinate [Toprol XL] 25 mg PO DAILY 09/25/20 [History] Rosuvastatin [Crestor] 10 mg PO DAILY 09/25/20 [History] Spironolactone [Aldactone] 25 mg PO DAILY 09/25/20 [History] Ticagrelor [Brilinta] 90 mg PO BID 09/25/20 [History] lisinopriL [Lisinopril] 10 mg PO DAILY 09/25/20 [History] Tamsulosin HCl [Flomax] 0.4 mg PO DAILY #15 cap.er.24h 10/06/20 [Rx] oxyCODONE HCl/Acetaminophen [Percocet 5-325 mg Tablet] 1 each PO Q6H PRN #20 tablet 10/06/20 [Rx] Past Medical History Cardiovascular History: Reports: CAD, Hypertension, CA Gastrointestinal History: Reports: Inflammatory Bowel Disease (Crohn disease, s/p colectomy) Genitourinary History: Reports: BPH, Renal Calculus - Infectious Disease History Infectious Disease History: Reports: Measles, Novel Coronavirus - Past Surgical History HEENT Surgical History: Reports: Oral Surgery (dental extractions) Cardiovascular Surgical History: Reports: Coronary Artery Stent (x 3) GI Surgical History: Reports: Colon (colectomy), Colostomy Male Surgical History: Reports: Lithotripsy (ES[facility]) Social & Family History - Tobacco Use Years of Tobacco use: 18 Packs/Tins Daily: 2 Month/Year Tobacco Last Used: Quit 1982 Tobacco Use Comment: Started smoking 1964 - Caffeine Use Caffeine Use: Reports: None Other Caffeine Use: decaf - Alcohol Use Alcohol Use History: No - Recreational Drug Use Recreational Drug Use: No - Living Situation & Occupation Living situation: Reports: , with Significant Other (Girlfriend) Occupation: Employed (Electronics repair) ED ROS GENERAL - Review of Systems Review Of Systems: Comprehensive ROS is negative, except as noted in HPI. ED EXAM, GENERAL - Physical Exam Exam: See Below Exam Limited By: No Limitations General Appearance: Alert, WD/WN, No Apparent Distress Eye Exam: Bilateral Eye: EOMI, Normal Inspection Ears: Normal External Exam, Hearing Grossly Normal Nose: Normal Inspection Throat/Mouth: Normal Inspection, Normal Lips, Normal Voice, No Airway Compromise Head: Atraumatic, Normocephalic Neck: Normal Inspection, Full Range of Motion Respiratory/Chest: No Respiratory Distress, Lungs Clear, Normal Breath Sounds, No Accessory Muscle Use. No: Decreased Breath Sounds, Crackles, Rhonchi, Wheezing, Stridor, Prolonged Expiration Cardiovascular: Normal Peripheral Pulses, Regular Rate, Rhythm, No Edema, No Gallop, No JVD, No Murmur, No Rub Peripheral Pulses: 3+: Radial (L), Radial (R) GI/Abdominal: Normal Bowel Sounds, Soft, Non-Tender, No Organomegaly, No Distention, No Abnormal Bruit, No Mass, Other (Colostomy site C/D/I) Back Exam: Normal Inspection, Full Range of Motion, NT Extremities: Normal Inspection, Normal Range of Motion, No Pedal Edema, Normal Capillary Refill Neurological: Alert, Oriented, Normal Cognition, No Motor/Sensory Deficits Psychiatric: Normal Affect Skin Exam: Warm, Dry, Intact, Normal Color, No Rash #1 Interpretation EKG Date: 11/10/20 Time: 05:52 Rhythm: NSR Rate (Beats/Min): 79 QRS: LBBB Comparison: No Change (03/25/2020) Course - Re-Assessments/Exams Free Text/Narrative Re-Assessment/Exam: 11/10/20 05:45 As above, the patient reports that he has had nausea, vomiting, and a headache felt on the top of his head since approximately Saturday. He also reports lightheadedness on and off, but it is unclear how long that has been going on. He states that he has felt generally tired and fatigued, partly because it is 89 degrees in their apartment. He has also been feeling dyspneic, although not orthopneic. No recent chest pain or palpitations. His physical exam is unremarkable. I have ordered a work-up that includes orthostatics, several blood tests, a chest x-ray, and an ECG. 11/10/20 05:54 The patient is significantly orthostatic. I have ordered a 1 L bolus of IV fluid, to be followed by repeat orthostatics. 11/10/20 07:52 2-view chest radiograph is read by Dr. Escoto as: 1. Findings as noted above. 2. Nothing acute is appreciated on two-view chest x-ray. The patient's CBC is remarkable for modest leukocytosis of 10.78, but with 0% bandemia. His H/H is slightly depressed at 13.0/38.2, with the remainder of his CBC being unremarkable. His CMP is remarkable for hyponatremia of 130, an anion gap mildly elevated at 18.3 with a bicarbonate depressed at 20, a BUN/Cr mildly elevated at 19/1.4, and hyperglycemia of 143, with the remainder of his CMP being unremarkable. His magnesium level is mildly depressed at 1.6. His TSH is elevated at 8.861. His troponin is undetectably low. His pro-BNP is modestly elevated at 637. His D-dimer is elevated at 1.08. Based on the above, I have ordered a 2 g Mg-rider and a CT angiogram of the chest to evaluate for a PE. 11/10/20 08:04 Following 1 L of IV fluid, the patient is still orthostatic, although it is significantly better than it was before. I have ordered a second liter bolus of IV fluid, to be followed by repeat orthostatics. 11/10/20 08:[address] Khan, and care of the patient turned over to him at this time, for change of shift. Departure - Departure Disposition: Home, Self-Care 01 Clinical Impression: Dehydration - Discharge Information *PRESCRIPTION DRUG MONITORING PROGRAM REVIEWED*: Not Applicable *COPY OF PRESCRIPTION DRUG MONITORING REPORT IN PATIENT [place]: Not Applicable Referrals: Fabricio Coto MD [Primary Care Provider] - Elisabeth Rangel MD [Ordering Only Provider] - Forms: ED Department Discharge Additional Instructions: Try to drink more fluids. Take your medications as prescribed. Follow up with your doctor. Please return if you are worse. Sepsis Event Note (ED) - Evaluation Sepsis Screening Result: No Definite Risk <Shaun Khan - Last Filed: 11/10/20 10:23> Course - Vital Signs Last Recorded V/S: Last Vital Signs Temp 96.8 F L 11/10/20 08:53 Pulse 61 11/10/20 08:53 Resp 20 11/10/20 08:53 BP 108/60 11/10/20 08:53 Pulse Ox 96 11/10/20 08:53 Orthostatic Blood Pressure [ 94/59 Sitting] Orthostatic Blood Pressure [ 87/48 Standing] Orthostatic Blood Pressure [ 109/53 Supine] - Orders/Labs/Meds Orders: Active Orders 24 hr Category Date Time Status EKG Documentation Completion [RC] STAT Care 11/10/20 05:42 Active Orthostatic Vital Signs [RC] STAT Care 11/10/20 05:41 Active Orthostatic Vital Signs [RC] STAT Care 11/10/20 05:53 Active Orthostatic Vital Signs [RC] STAT Care 11/10/20 08:09 Active Sodium Chloride 0.9% [Normal Saline] 100 ml Med 11/10/20 08:15 Active IV ASDIRECTED Sodium Chloride 0.9% [Saline Flush] Med 11/10/20 08:04 Active 10 ml FLUSH ONETIME PRN Medication Orders Sodium Chloride (Normal Saline) 100 mls @ 75 mls/hr IV ASDIRECTED LOUIE Last Admin: 11/10/20 08:27 Dose: 75 mls/hr Documented by: ROBERT Sodium Chloride (Sodium Chloride 0.9% 10 Ml Syringe) 10 ml FLUSH ONETIME PRN PRN Reason: IV FLUSH Last Admin: 11/10/20 08:27 Dose: 10 ml Documented by: ROBERT Labs: Laboratory Tests 11/10/20 11/10/20 11/10/20 Range/Units 06:05 06:05 06:05 WBC 10.78 H (4.23-9.07) K/mm3 RBC 4.27 L (4.63-6.08) M/mm3 Hgb 13.0 L D (13.7-17.5) gm/dl Hct 38.2 L (40.1-51.0) % MCV 89.5 (79.0-92.2) fl MCH 30.4 (25.7-32.2) pg MCHC 34.0 (32.2-35.5) g/dl RDW Std Deviation 41.1 (35.1-43.9) fL Plt Count 183 (163-337) K/mm3 MPV 9.8 (9.4-12.3) fl Neutrophils % (Manual) 85 H (40-60) % Band Neutrophils % 0 (0-10) % Lymphocytes % (Manual) 4 L (20-40) % Atypical Lymphs % 0 % Monocytes % (Manual) 11 H (2-10) % Eosinophils % (Manual) 0 L (0.8-7.0) % Basophils % (Manual) 0 L (0.2-1.2) Platelet Estimate Adequate RBC Morph Comment Normal D-Dimer, Quantitative 1.08 H (0.19-0.50) mg/L Sodium 130 L D (136-145) mEq/L Potassium 4.3 (3.5-5.1) mEq/L Chloride 96 L (98-107) mEq/L Carbon Dioxide 20 L (21-32) mEq/L Anion Gap 18.3 H (5-15) BUN 19 H (7-18) mg/dL Creatinine 1.4 H (0.7-1.3) mg/dL Est Cr Clr Drug Dosing 47.80 mL/min Estimated GFR (MDRD) 50 (>60) mL/min BUN/Creatinine Ratio 13.6 L (14-18) Glucose 143 H (70-99) mg/dL Calcium 9.1 (8.5-10.1) mg/dL Magnesium 1.6 L (1.8-2.4) mg/dL Total Bilirubin 0.5 (0.2-1.0) mg/dL AST 15 (15-37) U/L ALT 21 (16-63) U/L Alkaline Phosphatase 86 (46-116) U/L Troponin I < 0.017 (0.00-0.056) ng/mL NT-Pro-B Natriuret Pep (0-125) pg/mL Total Protein 7.5 (6.4-8.2) g/dl Albumin 3.2 L (3.4-5.0) g/dl Globulin 4.3 gm/dL Albumin/Globulin Ratio 0.7 L (1-2) TSH 3rd Generation 8.861 H (0.358-3.74) uIU/mL 11/10/20 Range/Units 06:05 WBC (4.23-9.07) K/mm3 RBC (4.63-6.08) M/mm3 Hgb (13.7-17.5) gm/dl Hct (40.1-51.0) % MCV (79.0-92.2) fl MCH (25.7-32.2) pg MCHC (32.2-35.5) g/dl RDW Std Deviation (35.1-43.9) fL Plt Count (163-337) K/mm3 MPV (9.4-12.3) fl Neutrophils % (Manual) (40-60) % Band Neutrophils % (0-10) % Lymphocytes % (Manual) (20-40) % Atypical Lymphs % % Monocytes % (Manual) (2-10) % Eosinophils % (Manual) (0.8-7.0) % Basophils % (Manual) (0.2-1.2) Platelet Estimate RBC Morph Comment D-Dimer, Quantitative (0.19-0.50) mg/L Sodium (136-145) mEq/L Potassium (3.5-5.1) mEq/L Chloride (98-107) mEq/L Carbon Dioxide (21-32) mEq/L Anion Gap (5-15) BUN (7-18) mg/dL Creatinine (0.7-1.3) mg/dL Est Cr Clr Drug Dosing mL/min Estimated GFR (MDRD) (>60) mL/min BUN/Creatinine Ratio (14-18) Glucose (70-99) mg/dL Calcium (8.5-10.1) mg/dL Magnesium (1.8-2.4) mg/dL Total Bilirubin (0.2-1.0) mg/dL AST (15-37) U/L ALT (16-63) U/L Alkaline Phosphatase (46-116) U/L Troponin I (0.00-0.056) ng/mL NT-Pro-B Natriuret Pep 637 H (0-125) pg/mL Total Protein (6.4-8.2) g/dl Albumin (3.4-5.0) g/dl Globulin gm/dL Albumin/Globulin Ratio (1-2) TSH 3rd Generation (0.358-3.74) uIU/mL Meds: Medications Generic Name Dose Route Start Last Admin Trade Name Freq PRN Reason Stop Dose Admin Sodium Chloride 100 mls @ 75 mls/hr 11/10/20 08:15 11/10/20 08:27 Normal Saline IV 75 mls/hr ASDIRECTED LOUIE Administration Sodium Chloride 10 ml 11/10/20 08:04 11/10/20 08:27 Sodium Chloride 0.9% 10 Ml Syringe FLUSH 10 ml ONETIME PRN Administration IV FLUSH Discontinued Medications Generic Name Dose Route Start Last Admin Trade Name Freq PRN Reason Stop Dose Admin Sodium Chloride 1,000 mls @ 999 mls/hr 11/10/20 05:53 11/10/20 06:07 Normal Saline IV 11/10/20 06:53 999 mls/hr ONETIME ONE Administration Magnesium Sulfate 2 gm/ Premix 50 mls @ 25 mls/hr 07/22/21 07:54 11/10/20 08:52 IV 11/10/20 09:53 25 mls/hr ONETIME ONE Administration Sodium Chloride 1,000 mls @ 999 mls/hr 11/10/20 08:00 11/10/20 08:49 Normal Saline IV 11/10/20 09:00 999 mls/hr ONETIME ONE Administration Iopamidol 100 ml 11/10/20 08:04 11/10/20 08:27 Iopamidol 755 Mg/Ml 100 Ml Bottle IVPUSH 11/10/20 08:05 100 ml ONETIME ONE Administration Ondansetron HCl 4 mg 11/10/20 08:03 11/10/20 08:45 Ondansetron 4 Mg/2 Ml Sdv IVPUSH 11/10/20 08:04 4 mg ONETIME ONE Administration - Re-Assessments/Exams Free Text/Narrative Re-Assessment/Exam: 11/10/20 10:[address] Stahl. The CT angio shows no findings of pulmonary embolism. Calcified gallstones are seen. Other findings as described above which are felt to be chronic. Nothing acute is appreciated on CT study of the chest. He feels better. I will discharge him home. Departure - Departure Time of Disposition: 10:25 Condition: Good Sepsis Event Note (ED) - Focused Exam Vital Signs: Vital Signs Temp Pulse Resp BP Pulse Ox 11/10/20 08:53 96.8 F L 61 20 108/60 96 11/10/20 07:15 98.1 F 66 16 109/53 L 98 11/10/20 05:03 98.3 F 92 17 165/77 H 96
[2020-11-10] MEDS ORDERED: Sodium Chloride 0.9% 1,000 ML IV ONE ×2 (05:53→08:00)
--- NOTE | 2020-11-10 07:43 | CR ---
Chest: PA and lateral views of the chest were obtained. Comparison: Prior chest x-ray of 03/25/20. Heart size and mediastinum are normal. Lungs are clear with no acute parenchymal change. Bony structures are osteopenic. Slight degenerative spurring is scattered within the spine with mild scoliosis. Impression: 1. Findings as noted above. 2. Nothing acute is appreciated on 2 view chest x-ray. Diagnostic code #2
[2020-11-10] MEDS ORDERED: Magnesium Sulfate/Water 2 GM in Premix Bag 1 BAG IV ONE (07:54)
[2020-11-10] MEDS ORDERED: Ondansetron 4 MG/2 ML SDV IVPUSH ONE (08:03)
[2020-11-10] MEDS ORDERED: Iopamidol 755 Mg/ML 100 ML Bottle IVPUSH ONE (08:04)
[2020-11-10] MEDS ORDERED: Sodium Chloride 0.9% 10 ML Syringe FLUSH PRN (08:04)
[2020-11-10] MEDS ORDERED: Sodium Chloride 0.9% 100 ML IV SCH (08:15)
--- NOTE | 2020-11-10 08:58 | CT ---
CT chest Technique: Multiple axial sections through the chest were obtained. Intravenous contrast was utilized. Study has been performed as a pulmonary angiogram protocol. Comparison: No prior chest CT is available, prior chest x-ray performed earlier on the same day is available (6:18 AM). Findings: Thoracic aorta shows mild atherosclerotic calcification with no aneurysm. Pulmonary arteries are well opacified. No filling defects are seen to indicate pulmonary embolism. Mediastinum and hilar regions show no adenopathy. No axillary adenopathy is seen. No pericardial thickening is seen. Calcified gallstones are seen within the gallbladder. Lung window settings were reviewed. Mild peripheral interstitial change is noted which appears to be chronic. Small nodule is noted within the right upper lung measuring 6 mm. Second nodule is seen within the superior segment of the left lower lung measuring 8 mm. Both these nodules appear slightly calcified compatible with granulomas. No acute parenchymal change is seen. Bone window settings were reviewed. Scattered degenerative endplate spurring is seen within the spine. No acute osseous abnormality is appreciated. Mild bilateral gynecomastia is noted. Impression: 1. No findings of pulmonary embolism. 2. Calcified gallstones are seen. 3. Other findings as described above which are felt to be chronic. Nothing acute is appreciated on CT study of the chest. Diagnostic code #2
== END 2020-11-10 10:32 | disposition home or self-care (01) ==
LOC: JD.ED 04:54
DX: E86.0 Dehydration (principal); E83.42 Hypomagnesemia; R94.6 Abnormal results of thyroid function studies; R79.89 Other specified abnormal findings of blood chemistry; I25.10 Atherosclerotic heart disease of native coronary artery without angina pectoris; I10 Essential (primary) hypertension; I25.2 Old myocardial infarction; Z79.02 Long term (current) use of antithrombotics/antiplatelets; Z88.5 Allergy status to narcotic agent; Z79.899 Other long term (current) drug therapy; Z72.0 Tobacco use; R06.00 Dyspnea, unspecified
CPT/HCPCS: 36415; 71046; 71275; 80053; 83735; 83880; 84443; 84484; 85007; 85027; 85379; 93005; 96365; 96366; 96375; 99284; J2405; J3475; J7030; Q9967; 93010

== ENCOUNTER 2022-06-12 17:07 | Emergency (ER) | payer MEDICAID, MEDICARE, OTHER ==
[2022-06-12] MEDS ORDERED: Sodium Chloride 0.9% 10 ML Syringe FLUSH PRN (18:09)
[2022-06-12 19:19] LABS: ESTIMATED GFR 78 mL/min (>60)
[2022-06-12] MEDS ORDERED: Ondansetron 4 MG/2 ML SDV IVPUSH ONE (19:24)
[2022-06-12] MEDS ORDERED: HYDROmorphone 1 MG/ML Syringe IVPUSH ONE (19:24)
[2022-06-12] MEDS ORDERED: Sodium Chloride 0.9% 1,000 ML IV ONE (20:36)
== END 2022-06-12 22:34 | disposition home or self-care (01) ==
LOC: JD.ED 17:07
DX: K52.9 Noninfective gastroenteritis and colitis, unspecified (principal); I25.10 Atherosclerotic heart disease of native coronary artery without angina pectoris; I25.2 Old myocardial infarction; N40.0 Benign prostatic hyperplasia without lower urinary tract symptoms; E03.9 Hypothyroidism, unspecified; Z88.5 Allergy status to narcotic agent; Z79.82 Long term (current) use of aspirin; Z79.899 Other long term (current) drug therapy; Z86.73 Personal history of transient ischemic attack (TIA), and cerebral infarction without residual deficits; Z86.16 Personal history of COVID-19
CPT/HCPCS: 36415; 80053; 81001; 83690; 83735; 85025; 86140; 96361; 96374; 96375; 99283; 99284-25; J1170; J2405; J3490; J7030

== ENCOUNTER 2022-11-11 09:43 | Emergency (ER) | payer MEDICARE, MEDICAID ==
[2022-11-11] MEDS ORDERED: Nitroglycerin 0.4 MG Tab.SL SL PRN (09:55)
[2022-11-11] MEDS ORDERED: Aspirin 81 MG Tab.Chew PO ONE (09:55)
[2022-11-11] MEDS ORDERED: Sodium Chloride 0.9% 10 ML Syringe FLUSH PRN (09:55)
[2022-11-11] MEDS ORDERED: HYDROmorphone 0.5 MG/0.5 ML Syringe IVPUSH ONE (09:56)
[2022-11-11 10:02] LABS: BASOPHILS ABSOLUTE AUTO 0.01 K/mm3 (0.01-0.08); BASOPHILS PERCENT AUTO 0.2 % (0.1-1.2); EOSINOPHILS ABSOLUTE AUTO 0.16 K/mm3 (0.04-0.54); EOSINOPHILS PERCENT AUTO 2.5 (0.8-7.0); HEMATOCRIT 43.8 % (40.1-51.0); HEMOGLOBIN 15.2 gm/dl (13.7-17.5); IMMATURE GRAN ABSOLUTE AUTO 0.01 K/mm3 (0.00-0.10); IMMATURE GRAN PERCENT AUTO 0.2 % (<=1.0); LYMPHOCYTES ABSOLUTE AUTO 1.34 K/mm3 (1.32-3.57); LYMPHOCYTES PERCENT AUTO 21.2 % (21.8-53.1); MEAN CORPUSCULAR HEMOGLOBIN 31.3 pg (25.7-32.2); MEAN CORPUSCULAR HGB CONC 34.7 g/dl (32.2-35.5); MEAN CORPUSCULAR VOLUME 90.1 fl (79.0-92.2); MEAN PLATELET VOLUME 9.3 fl (9.4-12.3); MONOCYTES ABSOLUTE AUTO 0.45 K/mm3 (0.30-0.82); MONOCYTES PERCENT AUTO 7.1 % (5.3-12.2); NEUTROPHILS ABSOLUTE AUTO 4.36 K/mm3 (1.78-5.38); NEUTROPHILS PERCENT AUTO 68.8 % (34.0-67.9); PLATELET COUNT,PLT 271 K/mm3 (163-337); RED BLOOD CELL COUNT 4.86 M/mm3 (4.63-6.08); WHITE BLOOD CELL COUNT,WBC 6.33 K/mm3 (4.23-9.07)
[2022-11-11] MEDS ORDERED: Ondansetron 4 MG/2 ML SDV IVPUSH ONE (10:06)
[2022-11-11 10:29] LABS: ALBUMIN 3.6 g/dl (3.4-5.0); ANION GAP 13.4 (5-15); BILIRUBIN TOTAL 0.5 mg/dL (0.2-1.0); BUN/CREATININE RATIO 9.2 (14-18); CALCIUM 8.8 mg/dL (8.5-10.1); CREATININE 1.3 mg/dL (0.7-1.3); EST CRCL DRUG DOSING (CG) 49.91 mL/min; POTASSIUM,K 3.4 mEq/L (3.5-5.1); PROTEIN TOTAL,TP 7.4 g/dl (6.4-8.2)
[2022-11-11] MEDS ORDERED: Nitroglycerin 0.4 MG Tab.SL SL ONE (11:46)
[2022-11-11] MEDS ORDERED: Heparin Sodium 5,000 Units/ML Vial IVPUSH ONE (12:27)
[2022-11-11] MEDS ORDERED: Heparin Sodium/D5W 25,000 UNITS/500 ML BAG IV SCH (12:30)
== END 2022-11-11 13:15 ==
LOC: JD.ED 09:43
DX: I20.0 Unstable angina (principal); I25.10 Atherosclerotic heart disease of native coronary artery without angina pectoris; I10 Essential (primary) hypertension; I25.2 Old myocardial infarction; E03.9 Hypothyroidism, unspecified; Z86.16 Personal history of COVID-19; Z79.899 Other long term (current) drug therapy; Z88.5 Allergy status to narcotic agent; Z79.82 Long term (current) use of aspirin
CPT/HCPCS: 36415; 71045; 80053; 84484; 85025; 93005; 96365; 96375; 96376; 99285; A9270; J1170; J1644; J2405; 93010

== ENCOUNTER 2023-04-20 20:17 | Emergency (ER) | payer MEDICARE, MEDICAID ==
[2023-04-20 21:20] LABS: CORONAVIRUS COVID-19 NAA NEGATIVE (NEGATIVE); INFLUENZA A NAA POSITIVE (NEGATIVE); RESPIRATORY SYNCYTIAL VIR NAA NEGATIVE (NEGATIVE)
[2023-04-20] MEDS ORDERED: Ondansetron 4 MG Tab.DIS PO ONE (21:32)
== END 2023-04-20 22:53 | disposition home or self-care (01) ==
LOC: JD.ED 20:17
DX: J10.1 Influenza due to other identified influenza virus with other respiratory manifestations (principal); Z20.822 Contact with and (suspected) exposure to COVID-19; I25.10 Atherosclerotic heart disease of native coronary artery without angina pectoris; I10 Essential (primary) hypertension; I25.2 Old myocardial infarction; Z86.16 Personal history of COVID-19; Z79.82 Long term (current) use of aspirin; Z88.5 Allergy status to narcotic agent
CPT/HCPCS: 0241U; 71045; 99284; A9270

== ENCOUNTER 2023-09-17 19:51 | Emergency (ER) | payer MEDICARE, MEDICAID ==
[2023-09-17] MEDS: Hydrocortisone/Neomycin/Polymyxin B Otic Susp 10 ML Bottle EARLF ONE (21:53)
[2023-09-17] MEDS: Cefdinir 300 MG Cap PO ONE (21:53)
== END 2023-09-17 21:59 | disposition home or self-care (01) ==
LOC: JD.ED 19:51
DX: H60.332 Swimmer's ear, left ear (principal); E03.9 Hypothyroidism, unspecified; Z88.5 Allergy status to narcotic agent; Z79.82 Long term (current) use of aspirin; Z79.890 Hormone replacement therapy; Z79.899 Other long term (current) drug therapy; Z86.73 Personal history of transient ischemic attack (TIA), and cerebral infarction without residual deficits; Z95.5 Presence of coronary angioplasty implant and graft; Z87.891 Personal history of nicotine dependence
CPT/HCPCS: 99282; A9270

== ENCOUNTER 2024-03-20 07:04 | Emergency (ER) | payer MEDICARE, MEDICAID ==
[2024-03-20 08:22] LABS: BASOPHILS PERCENT AUTO 0.2 % (0.0-1.0); EOSINOPHILS PERCENT AUTO 0.4 % (0.0-6.0); HEMATOCRIT 46.6 % (42.0-52.0); HEMOGLOBIN 16.3 gm/dl (14.0-18.0); IMMATURE GRAN ABSOLUTE AUTO 0.04 K/mm3 (0.00-0.05); IMMATURE GRAN PERCENT AUTO 0.4 % (0.0-0.4); LYMPHOCYTES ABSOLUTE AUTO 0.7 K/mm3 (1.0-4.8); LYMPHOCYTES PERCENT AUTO 6.3 % (24.0-44.0); MEAN CORPUSCULAR VOLUME 88.8 fl (83.0-99.0); MEAN PLATELET VOLUME 9.7 fl (9.4-12.4); MONOCYTES ABSOLUTE AUTO 0.7 K/mm3 (0.0-0.8); MONOCYTES PERCENT AUTO 6.7 % (0.0-8.0); NEUTROPHILS ABSOLUTE AUTO 9.4 K/mm3 (1.8-7.7); PLATELET COUNT,PLT 247 K/mm3 (150-400); RED BLOOD CELL COUNT 5.25 M/mm3 (4.52-5.90); WHITE BLOOD CELL COUNT,WBC 10.96 K/mm3 (3.9-11.3)
[2024-03-20] MEDS: Dextrose 5%-Lactated Ringers 1,000 ML IV SCH (08:22)
[2024-03-20] MEDS: Metoclopramide 10 MG/2 ML SDV IVPUSH ONE (08:22)
[2024-03-20] MEDS: HYDROmorphone 0.5 MG/0.5 ML Syringe IVPUSH ONE (08:22)
[2024-03-20] MEDS: Lidocaine 2% 11 ML Jelly Filled Syringe MUCMEM ONE (08:39)
[2024-03-20 08:44] LABS: INR 1.03; PROTHROMBIN TIME 10.9 SECONDS (9.7-12.0)
[2024-03-20 08:56] LABS: LACTIC ACID 2.5 mmol/L (0.4-2.0)
[2024-03-20] MEDS: Benzocaine 20% Topical Spray UD MUCMEM ONE (08:58)
[2024-03-20 08:59] LABS: A/G RATIO 0.9 (1-2); ALBUMIN 3.6 g/dl (3.4-5.0); ANION GAP 16.7 (5-15); BILIRUBIN TOTAL 1.4 mg/dL (0.2-1.0); C-REACTIVE PROTEIN 2.78 mg/dL (<0.30); CALCIUM 9.1 mg/dL (8.5-10.1); CREATININE 1.5 mg/dL (0.7-1.3); EST CRCL DRUG DOSING (CG) 42.58 mL/min; MAGNESIUM 1.7 mg/dL (1.8-2.4); POTASSIUM,K 3.7 mEq/L (3.5-5.1); PROTEIN TOTAL,TP 7.5 g/dl (6.4-8.2)
[2024-03-20 09:23] LABS: TSH 13.935 uIU/mL (0.358-3.74)
[2024-03-20] MEDS: Sodium Chloride 0.9% 10 ML Syringe FLUSH PRN ×2 (09:42→09:52)
[2024-03-20] MEDS: Iopamidol 612 MG/ML 100 ML Bottle IVPUSH ONE ×2 (09:42→09:53)
[2024-03-20] MEDS: Lactated Ringers 1,000 ML IV SCH (10:42)
== END 2024-03-20 11:22 ==
LOC: JD.ED 07:04
DX: K56.609 Unspecified intestinal obstruction, unspecified as to partial versus complete obstruction (principal); I50.30 Unspecified diastolic (congestive) heart failure; N18.30 Chronic kidney disease, stage 3 unspecified; E87.20 Acidosis, unspecified; E03.9 Hypothyroidism, unspecified; Z86.16 Personal history of COVID-19; Z90.49 Acquired absence of other specified parts of digestive tract; Z95.5 Presence of coronary angioplasty implant and graft; Z86.73 Personal history of transient ischemic attack (TIA), and cerebral infarction without residual deficits; Z88.5 Allergy status to narcotic agent; Z79.82 Long term (current) use of aspirin; Z79.890 Hormone replacement therapy; Z79.899 Other long term (current) drug therapy
CPT/HCPCS: 36415; 74018; 74177; 80053; 82010; 83605; 83690; 83735; 83880; 84443; 84484; 85025; 85610; 85730; 86140; 93005; 96361; 96374; 96375; 99285; A9270; J1171; J2765; J3490; J7120; J7121; Q9967